=== PATIENT | female | born 1985 | race African-American/Black ===

== ENCOUNTER 2021-10-31 09:29 | Outpatient (REF) | payer OTHER, MEDICAID, SELFPAY ==
[2021-11-01 09:01] LABS: Rubella IgG Antibody <0.90 Index
== END 2021-10-31 09:30 | disposition home or self-care (01) ==
LOC: HO.HMGCLDS 09:29
PROVIDERS: Visit Provider Physician Assistant
DX: Z01.84 Encounter for antibody response examination (principal); Z92.29 Personal history of other drug therapy
CPT/HCPCS: 36415; 86735; 86762; 86765; 86787

== ENCOUNTER 2022-04-24 10:04 | Outpatient (REF) | payer MEDICAID, OTHER, SELFPAY ==
[2022-04-24 11:28] LABS: MANUAL DIFF FLAG NO
[2022-04-24 11:36] LABS: Basophils Percent Auto 0.8 % (0-2); Eosinophils Absolute Auto 0.1 X10*3/uL (0.0-0.4); Eosinophils Percent Auto 1.6 % (0-4); Hematocrit 37.7 % (37.0-47.0); Hemoglobin 11.8 g/dl (12.0-16.0); Imm Gran Abs Auto 0.01 X10*3/uL (0.00-0.03); Imm Gran Pct Auto 0.3 % (0.0-0.4); Lymphocytes Absolute Auto 1.7 X10*3/uL (1.2-4.9); Lymphocytes Percent Auto 47.3 % (20-40); Mean Corpuscular HGB Conc 31.3 g/dl (31.0-35.0); Mean Corpuscular Hemoglobin 29.4 pg (27.0-33.0); Mean Corpuscular Volume 93.8 fL (80.0-98.0); Mean Platelet Volume 10.5 fL (9.4-12.3); Monocytes Absolute Auto 0.3 X10*3/uL (0.1-1.2); Monocytes Percent Auto 8.2 % (2-11); Neutrophils Absolute Auto 1.5 x10*3/uL (2.0-8.3); Neutrophils Percent Auto 41.8 % (45-73); Platelet Count 188 X10*3/uL (160-400); Red Blood Count 4.02 X10*6/uL (4.20-5.50); Red Cell Distribution Width 12.2 % (11.0-16.0); White Blood Count 3.7 X10*3/uL (4.8-10.8)
[2022-04-24 12:29] LABS: Vitamin D 25-OH Total 27.8 ng/mL (>30)
== END 2022-04-24 10:05 | disposition home or self-care (01) ==
LOC: HO.HMGCLDS 10:04
PROVIDERS: PCP Internal Medicine; Visit Provider Internal Medicine
DX: Z01.84 Encounter for antibody response examination (principal); Z86.2 Personal history of diseases of the blood and blood-forming organs and certain disorders involving the immune mechanism
CPT/HCPCS: 36415; 82306; 85025; 86762

== ENCOUNTER 2022-07-31 08:17 | Outpatient (REF) | payer OTHER, SELFPAY ==
[2022-07-31 11:29] LABS: MANUAL DIFF FLAG NO
[2022-07-31 11:41] LABS: Basophils Percent Auto 0.8 % (0-2); Eosinophils Absolute Auto 0.1 X10*3/uL (0.0-0.4); Eosinophils Percent Auto 2.5 % (0-4); Hematocrit 38.3 % (37.0-47.0); Hemoglobin 11.6 g/dl (12.0-16.0); Imm Gran Abs Auto 0.01 X10*3/uL (0.00-0.03); Imm Gran Pct Auto 0.3 % (0.0-0.4); Lymphocytes Absolute Auto 1.7 X10*3/uL (1.2-4.9); Lymphocytes Percent Auto 43.5 % (20-40); Mean Corpuscular HGB Conc 30.3 g/dl (31.0-35.0); Mean Corpuscular Hemoglobin 28.9 pg (27.0-33.0); Mean Corpuscular Volume 95.3 fL (80.0-98.0); Mean Platelet Volume 10.6 fL (9.4-12.3); Monocytes Absolute Auto 0.3 X10*3/uL (0.1-1.2); Monocytes Percent Auto 8.5 % (2-11); Neutrophils Absolute Auto 1.8 x10*3/uL (2.0-8.3); Neutrophils Percent Auto 44.4 % (45-73); Platelet Count 212 X10*3/uL (160-400); Red Blood Count 4.02 X10*6/uL (4.20-5.50); Red Cell Distribution Width 12.2 % (11.0-16.0)
[2022-07-31 13:56] LABS: Folate 15.2 ng/mL (> or = 4.0); Vitamin B12 603 pg/mL (200-900)
[2022-07-31 14:10] LABS: Alanine Aminotransferase 21 U/L (0-31); Anion Gap 10 (12-20); Aspartate Amino Transferase 18 U/L (5-31); Blood Urea Nitrogen 9 mg/dL (9-16); Calcium 8.9 mg/dL (8.4-10.2); Carbon Dioxide 27 mmol/L (22-29); Chloride 108 mmol/L (96-108); Cholesterol 190 mg/dL; Estimated Glomerular Filt Rate > 60; Glucose Fasting 91 mg/dL (60-99); HDL Cholesterol 60 mg/dL; Iron 79 mcg/dL (30-160); LDL Cholesterol Calculated 120 mg/dl; Percent Iron Saturation 25 % (15-50); Potassium 3.8 mmol/L (3.3-5.1); Sodium 141 mmol/L (135-145); Total Iron Binding Capacity 317 mcg/dL (228-428); Triglycerides 51 mg/dL; Unsaturated Iron Binding 238 ug/dL; Vitamin D 25-OH Total 43.8 ng/mL (>30)
== END 2022-07-31 08:18 | disposition home or self-care (01) ==
LOC: HO.HMGCLDS 08:17
PROVIDERS: PCP Internal Medicine; Visit Provider Internal Medicine
DX: Z00.01 Encounter for general adult medical examination with abnormal findings (principal); Z86.2 Personal history of diseases of the blood and blood-forming organs and certain disorders involving the immune mechanism; Z86.39 Personal history of other endocrine, nutritional and metabolic disease
CPT/HCPCS: 36415; 80048; 80061; 82306; 82607; 82746; 83540; 84450; 84460; 85025

== ENCOUNTER 2022-08-01 09:28 | Outpatient (REF) | payer OTHER, SELFPAY ==
[2022-08-04 22:04] LABS: HPV mRNA E6/E7 rflx Not Detected (Not Detected)
== END 2022-08-01 09:29 | disposition home or self-care (01) ==
LOC: HO.LNP 09:28
PROVIDERS: PCP Internal Medicine; Visit Provider Advanced Practice Midwife
DX: Z01.419 Encounter for gynecological examination (general) (routine) without abnormal findings (principal); Z32.02 Encounter for pregnancy test, result negative; Z11.3 Encounter for screening for infections with a predominantly sexual mode of transmission; Z11.51 Encounter for screening for human papillomavirus (HPV)
CPT/HCPCS: 81025; 86780; 86803; 87340; 87389; 87480; 87491; 87510; 87591; 87624; 87660; 88142

== ENCOUNTER 2022-08-01 10:44 | Outpatient (REF) | payer OTHER, SELFPAY ==
[2022-08-01 12:28] LABS: HBsAGNum1 0.28 S/CO (0.00-0.99); HIV AB/AG Nonreactive (Nonreactive); Hepatitis B Surface Antigen Negative (Negative); ~HepC Num1 0.07 S/CO (0.00-0.79); ~Hepatitis C Antibody Nonreactive (Nonreactive)
[2022-08-01 12:55] LABS: Syphilis Screen Nonreactive (Nonreactive)
[2022-08-01 16:57] LABS: CT PCR NOT DETECTED (Not Detect.); NG PCR NOT DETECTED (Not Detect.)
[2022-08-02 09:33] LABS: BV Int Neg Control Negative (Negative); BV Int Pos Control Positive (Positive)
== END 2022-08-01 10:45 | disposition home or self-care (01) ==
LOC: HO.LAB 10:44
PROVIDERS: PCP Internal Medicine; Visit Provider Advanced Practice Midwife
DX: Z13.89 Encounter for screening for other disorder (principal)
CPT/HCPCS: 86780; 86803; 87340; 87389; 87480; 87491; 87510; 87591; 87660

== ENCOUNTER 2022-10-26 10:39 | Outpatient (REF) | payer OTHER, SELFPAY ==
[2022-10-27 03:24] LABS: CT PCR NOT DETECTED (Not Detect.); NG PCR NOT DETECTED (Not Detect.)
[2022-10-27 11:35] LABS: BV Int Neg Control Negative (Negative); BV Int Pos Control Positive (Positive)
[2022-11-01 07:28] LABS: HPV 16 RNA NOT DETECTED (NOT DETECTED); HPV mRNA E6/E7 rflx Detected (Not Detected)
== END 2022-10-26 10:40 | disposition home or self-care (01) ==
LOC: HO.LNP 10:39
PROVIDERS: PCP Internal Medicine; Visit Provider Advanced Practice Midwife
DX: Z12.4 Encounter for screening for malignant neoplasm of cervix (principal); Z11.3 Encounter for screening for infections with a predominantly sexual mode of transmission; Z11.51 Encounter for screening for human papillomavirus (HPV)
CPT/HCPCS: 0353U; 87480; 87510; 87624; 87625; 87660; 88142; 99212

== ENCOUNTER 2022-12-22 13:23 | Outpatient (REF) | payer OTHER, SELFPAY ==
[2022-12-22 16:50] LABS: Influenza A PCR NEGATIVE (Negative); Influenza B PCR NEGATIVE (Negative); Resp Syncy Virus RNA Qual PCR NEGATIVE (Negative); SARS COV2 PCR INHOUSE NEGATIVE (Negative)
== END 2022-12-22 13:24 | disposition home or self-care (01) ==
LOC: HO.LAB 13:23
PROVIDERS: Visit Provider Nurse Practitioner Acute Care
DX: Z20.822 Contact with and (suspected) exposure to COVID-19 (principal); J02.9 Acute pharyngitis, unspecified
CPT/HCPCS: 0241U

== ENCOUNTER 2023-02-08 11:05 | Outpatient (REF) | payer OTHER, SELFPAY ==
[2023-02-08 14:05] LABS: MANUAL DIFF FLAG NO
[2023-02-08 14:09] LABS: Basophils Percent Auto 0.8 % (0-2); Eosinophils Absolute Auto 0.1 X10*3/uL (0.0-0.4); Eosinophils Percent Auto 2.5 % (0-4); Hematocrit 38.8 % (37.0-47.0); Hemoglobin 11.8 g/dl (12.0-16.0); Lymphocytes Absolute Auto 1.7 X10*3/uL (1.2-4.9); Lymphocytes Percent Auto 45.8 % (20-40); Mean Corpuscular HGB Conc 30.4 g/dl (31.0-35.0); Mean Corpuscular Hemoglobin 28.8 pg (27.0-33.0); Mean Corpuscular Volume 94.6 fL (80.0-98.0); Mean Platelet Volume 10.4 fL (9.4-12.3); Monocytes Absolute Auto 0.2 X10*3/uL (0.1-1.2); Monocytes Percent Auto 5.8 % (2-11); Neutrophils Absolute Auto 1.7 x10*3/uL (2.0-8.3); Neutrophils Percent Auto 45.1 % (45-73); Platelet Count 217 X10*3/uL (160-400); White Blood Count 3.7 X10*3/uL (4.8-10.8)
[2023-02-08 18:50] LABS: Iron 80 mcg/dL (30-160); Percent Iron Saturation 26 % (15-50); Total Iron Binding Capacity 302 mcg/dL (228-428); Unsaturated Iron Binding 222 ug/dL
[2023-02-08 19:11] LABS: TSH reflex Free T4 0.73 uIU/mL (0.32-4.0); Vitamin D 25-OH Total 85.1 ng/mL (>30)
[2023-02-08 19:22] LABS: Vitamin B12 657 pg/mL (200-900)
== END 2023-02-08 11:06 | disposition home or self-care (01) ==
LOC: HO.HMGCLDS 11:05
PROVIDERS: PCP Internal Medicine; Visit Provider Internal Medicine
DX: R20.0 Anesthesia of skin (principal); R20.2 Paresthesia of skin
CPT/HCPCS: 36415; 82306; 82607; 82746; 83540; 84443; 85025

== ENCOUNTER 2023-04-03 10:05 | Outpatient (REF) | payer OTHER, SELFPAY ==
--- NOTE | 2023-04-03 10:08 | EMG_ITS ---
Please see scanned EMG / Nerve Conduction Report. MTDD
--- NOTE | 2023-04-03 10:09 | EMG_ITS ---
Please see scanned EMG / Nerve Conduction Report. MTDD
== END 2023-04-03 10:06 | disposition home or self-care (01) ==
LOC: HO.NEURO 10:05
PROVIDERS: PCP Internal Medicine; Visit Provider Internal Medicine
DX: R20.0 Anesthesia of skin (principal); R20.2 Paresthesia of skin
CPT/HCPCS: 95860; 95885; 95907; 95913

== ENCOUNTER 2023-07-17 13:49 | Outpatient (AMB) | payer OTHER, SELFPAY ==
[2023-07-17 14:11] VITALS: BP 116/60; BMI 27.4
--- NOTE | 2023-07-17 14:11 | MHC.OFFVIS ---
Intake Vital Signs 07/17/23 14:11 Height 5 ft 1 in Weight 145 lb BMI 27.4 BP 116/60 Intake Visit Reasons: -preg test/missed menses/sore breast Intake Note: hcg test done at home was negative, sore breast Director Outcomes Required: No Information Interpreted: non-clinical & clinical Welt Beater: Welt Beater Present (Delbert) Allergies No Known Allergies Allergy (Verified 07/17/23 14:15) Is last menstrual period known: Yes Last menstrual period: 06/16/23 Post menopausal: No HPI -preg test/missed menses/sore breast HPI Details Patient is here for test consult she has very regular periods her last period started on 06/16/2023 and when she did not get a period on the , she suspected in a test at home was negative but her breasts are tender and so she is here for a test today and the test is positive she would be 4 weeks and 3 days after her sure LMP. She had a miscarriage some years ago and then after that she had a son 8 years ago was born in [place] she had a completely normal with no issues about high blood pressure or diabetes or anything and no problems with bleeding her sister did have some high blood pressure but no preeclampsia either. She is aware of preeclampsia and so was looking up all signs and symptoms of issues to be concerned about in and she was also [employer] early with a negative test and so was reading up on ectopic pregnancies and miscarriages etc.. She has not had any pain. She has not had any spotting. She is happy with the she was feeling that if she did get by 39 then she would close the door on the possibility more. She lives in [place]. She has no medical problems. Her last Pap smear was negative with positive HPV and per the ASCCP recommendations she was told she needed a Pap smear next October which would be a 1 year. She has had breast tenderness since around the time she ovulated and is feeling very sleepy she has been having regular bowel movements. Denies constipation PFSH Medical History Numbness and tingling History of COVID-19 Hx of iron deficiency anemia Surgical History No pertinent past surgical history Family History Other No pertinent family history in first degree relatives Housing: Condominium Patient Tobacco Use Status: Never used Tobacco e-Cigarette/Vaping Use: Never Used service: No Current occupational status: student Cognitive needs: No Hearing needs: No Vision needs: No Female Reproductive History Menstrual Age of Menarche: 15 Duration of menses: <3 days Date of last menstrual period: 06/16/23 control method: none Total pregnancies: 2 Full term: 1 Number of Living Children: 1 Ab spontaneous: 1 Date of last pap smear: 10/28/22 (+HPV) History of abnormal pap smear: Yes Physical Exam Vital Signs: BMI result Body Mass Index 27.4 Results AMB Test Urine AMB Test Urine Positive Last Edit by MATT Calderón on 07/17/23 14:23 Results Reviewed Results Reviewed: Name: Delta Lawrence Age/Sex: 37/F Attending: Gretel El CNM : 1985 Submitted by: Gretel El CNM Copies to: Eugenia Miranda MD MR #: [id number] Status: DEP REF Collected: 10/26/22 Location: [facility] Received: 10/28/22 Interpretation General Category: Negative for intraepithelial lesion/malignancy. Adequacy: Endocervical component present. Interpretation: Reactive cellular changes. HPV mRNA E6/E7: DETECTED This assay detects E6/E7 viral messenger RNA (mRNA) from 14 high-risk HPV types (16, 18, 31, 33, 35, 39, 45, 51, 52, 56, 58, 59, 66, 68) HPV Type 16 RNA: Not Detected HPV Type 18/45 RNA: Not Detected HPV testing performed by [facility], [place], [place]. See reference laboratory portion of the EMR for entire report. Clinical Information LMP: 10/16/20 Previous PAP test: 08/01/22, WNL Material Received ThinPrep-Cervical Copies To Eugenia Miranda MD [address] [place], [place] [id number] [place] [place] [address] Electronically Signed By: Ana Frederick 11/07/221810 The Pap Test is a screening procedure with the inherent possibility of both false negative and false positive results. Results should be Patient: Delta Lawrence Age/Sex: 37/F MR#: [id number] Page 1 of 2 Gynecologic Cytology [id number] interpreted in the context of historic and current clinical findings. Reliability of the Pap Test is enhanced by performing the test on a regular repetitive basis. Patient: Delta Lawrence Age/Sex: 37/F MR#: [id number] Assessment & Plan Assessment & Plan (1) test positive: Code(s): Z32.01 - Encounter for test, result positive (2) AMA (advanced maternal age) multigravida 35+: Code(s): O09.529 - Supervision of elderly multigravida, unspecified trimester Plan Patient is here for test consult she has very regular periods her last period started on 06/16/2023 and when she did not get a period on the , she suspected in a test at home was negative but her breasts are tender and so she is here for a test today and the test is positive she would be 4 weeks and 3 days after her sure LMP. She had a miscarriage some years ago and then after that she had a son 8 years ago was born in [place] she had a completely normal with no issues about high blood pressure or diabetes or anything and no problems with bleeding her sister did have some high blood pressure but no preeclampsia either. She is aware of preeclampsia and so was looking up all signs and symptoms of issues to be concerned about in and she was also [employer] early with a negative test and so was reading up on ectopic pregnancies and miscarriages etc.. She has not had any pain. She has not had any spotting. She is happy with the she was feeling that if she did get by 39 then she would close the door on the possibility more. She lives in [place]. She has no medical problems. Her last Pap smear was negative with positive HPV and per the ASCCP recommendations she was told she needed a Pap smear next October which would be a 1 year. She has had breast tenderness since around the time she ovulated and is feeling very sleepy she has been having regular bowel movements. Denies constipation. ---I reviewed the patient's medical history and risk factors for . I reviewed her menstrual history and regularity, and reviewed the dating of her last menstrual period and other indicators. I reviewed where she is in this , and what to expect in this early stage of the . ---I reviewed the routines of care. I reviewed the options open to her including care here and that delivery does not occur here; it occurs currently at our referring institution.. I also reviewed the options of receiving care and delivery at [facility]. I reviewed high risk factors that would necessitate a transfer of her care to [facility]. I also reviewed the plain option of receiving care at [facility] if she wanted to meet the team that she would be interacting with head of time versus having care here and delivering at [facility] in addition because she is over 35 I did tell her that she would probably have some testing towards the end of her that would be done at [facility]. ---I reviewed basic good health and ways to achieve a healthy and goals. I reviewed warning signs that would necessitate calling us: for instance, severe pain, bleeding, severe nausea and vomiting, such that she is unable to keep anything down and feeling weak. ---I discussed next steps, scheduling of the OB physical visit with a care provider, and timing and scheduling of initial ultrasounds and genetic screening and their purpose. -she was very clear that she would like to receive all of her care in [address] place and us she is going to call [facility] and schedule care from the start at 1 of the practices there I gave her a list of all of the practices and their phone numbers and recommend that she call next Saturday as today it is Saturday afternoon before and offices will be close on and Saturday. I am sending a prescription for vitamins for her although she is already taking folic acid and iron because of her history of anemia. I reviewed basic healthy goals with diet and active exercise and activity Because. she had [employer] possible problems in early I reviewed with her what she should do if she had any symptoms of pain or bleeding and she should go to the emergency room if she did have any pain to have a an ectopic ruled out. She is aware of the signs and symptoms of miscarriage in that she had a missed AB before having her child . I offered her an ultrasound for dating but recommended that she not consider doing it until 6 weeks so 2 weeks from now -but she declined this after consideration as it is not necessary. but if she had had any symptoms warranting willing out of an ectopic I would have ordered quantitative preg hormone labs, serially, and an ultrasound but she is not interested in those as she does not have any symptoms and she does not want to expose herself to on necessary testing of any sort. I did tell her that she would want to be establishing care soon so she could get genetic testing done at the appropriate time and nuchal translucency ultrasound done by 12 weeks at her future practice at [facility]. In addition I reminded her that she would need a Pap smear by October. She has an annual exam scheduled for this July here but she is probably going to cancel that and get her Pap with her initial . Care. I also had her take a picture of the directions to [facility] should she need it for future reference. She brings her son to [facility] for pediatric care so she is familiar with [facility]. Orders: Orders AMB HCG Urine Test Today Z32.01 - Encounter for test, result positive Medications: New PNV,calcium 65-bmgp-qwuzv acid 27 mg iron- 1 mg ( Vitamins Plus Low Iron) 1 tab PO DAILY 90 tabs 0RF Coding Level of Care Code Est Pt Level 3 (58039) Diagnoses test positive Z32.01 AMA (advanced maternal age) multigravida 35+ O09.529
== END 2023-07-17 14:55 | disposition home or self-care (01) ==
LOC: HO.HWS 13:49
PROVIDERS: PCP Internal Medicine; Visit Provider Advanced Practice Midwife
DX: Z32.01 Encounter for pregnancy test, result positive (principal); O09.529 Supervision of elderly multigravida, unspecified trimester
CPT/HCPCS: 99213

== ENCOUNTER → 2023-07-17 13:49 | Outpatient (BNVA) | payer OTHER, SELFPAY | PROVIDERS: PCP Internal Medicine; Visit Provider Advanced Practice Midwife | DX: O09.521 Supervision of elderly multigravida, first trimester (principal); O98.511 Other viral diseases complicating pregnancy, first trimester; O99.011 Anemia complicating pregnancy, first trimester; D50.9 Iron deficiency anemia, unspecified; Z3A.01 Less than 8 weeks gestation of pregnancy | CPT/HCPCS: 81025; 99212 ==

== ENCOUNTER 2024-04-30 10:23 | Outpatient (AMB) | payer OTHER, SELFPAY ==
--- NOTE | 2024-04-30 10:25 | A.OFFPC_ITS ---
Vital Signs 04/30/24 10:27 Height 5 ft 1 in Weight 138 lb 8 oz BMI 26.2 BP 140/100 H Blood Pressure Location Lt brachial Position Sitting Pulse 64 Pulse Source Pulse Oximeter Pulse Oximetry (%) 98 Oxygen Delivery Method Room Air Intake Visit Reasons: elevated b/p [facility] Intake Note: Patient here to discuss elevated BP since having her child. Allergies No Known Allergies Allergy (Verified 04/30/24 10:38) Medication List - Last Reconciled 04/30/24 by Eugenia Miranda MD cholecalciferol (vitamin D3) 125 mcg PO DAILY ferrous sulfate (Feosol) 325 mg PO DAILY folic acid 0.4 mg PO DAILY nifedipine ER 30 mg PO DAILY PNV,calcium 43-qoyy-lsexb acid 27 mg iron- 1 mg ( Vitamins Plus Low Iron) 1 tab PO DAILY Tobacco use date assessed: 04/30/24 Dental Screening Dental Screen Date: 04/30/24 Did you have a dental visit in the last 12 months?: No Did you have a dental problem in the last 6 months where you did not have access to dental care?: No Was dental information given to patient?: Patient has dentist HPI elevated b/p [facility] HPI Details 38-year-old lady approximately 2 months post part with her 2nd child, here today for follow-up. She was seen at the ER at [facility] with markedly elevated blood pressure, at that time she was hypertensive with a blood pressure 150/116 and was complaining of feeling lightheaded. At the ER she was found to be hypovolemic consistent with dehydration . HELLP labs were all within normal limits. She has been exclusively and admits to not eating or drinking regularly as she should be. She is the sole caregiver for 2-month-old and 7-year-old son who is autistic, used to work as a MEDICAL SALES REPRESENTATIVE but has not been able to work for several months now and is living on her savings . She has friends but no family around to help, and has been under lot of stress lately. She was started on nifedipine 30 mg once a day, but blood pressure still remains elevated at 1 40/100 on today's visit. She denies having any chest pain, no shortness of breath, but does occasionally have episodes of head fullness, and occasional lightheadedness. [facility] Medical History Social isolation in parenthood Essential hypertension Generalized anxiety disorder Numbness and tingling History of COVID-19 Hx of iron deficiency anemia Surgical History No pertinent past surgical history Family History Other No pertinent family history in first degree relatives Social [facility] Tobacco Use Status: Never used Tobacco e-Cigarette/Vaping Use: Never Used service: No Current occupational status: student Cognitive needs: No Hearing needs: No Vision needs: No Female Reproductive History Menstrual Age of Menarche: 15 control method: none Questionnaire PHQ-9 Over the last 2 weeks, how often have you been bothered by any of the following problems? 1. Little interest or pleasure in doing things: several days 2. Feeling down, depressed, or hopeless: more than half the days 3. Trouble falling or staying asleep, or sleeping too much: not at all 4. Feeling tired or having little energy: several days 5. Poor appetite or overeating: several days 6. Feeling bad about yourself - or that you are a failure or have let yourself or your family down: not at all 7. Trouble concentrating on things, such as reading the newspaper or watching television: not at all 8. Moving or speaking so slowly that other people could have noticed. Or the opposite - being so fidgety or restless that you have been moving around a lot more than usual: not at all 9. Thoughts that you would be better off or of hurting yourself in some way: not at all Total score: 5 Depression Screening Interpretation: Positive (Referred to Kaylyn Grijalva, for assistance with getting in patient for therapy and assist with getting social work therapist) Depression Screening Done: Yes 32733 - PHQ-9 Billing: Yes Source: Developed by Drs. Nathan Sanchez, Marlin Garcia, Horacio Gallegos and colleagues, with an educational amaya from [employer]. Thrive Questionnaire Date Thrive assessed: 04/30/24 I am a: Patient What is your living situation today?: I have a place to live, but I am worried about losing it in the future Within the past 12 months, did the food you bought not last and you didn't have the money to get more?: Sometimes True Within the past 12 months, did you worry whether your food would run out before you got money to buy more?: Sometimes True Do you have trouble paying for medicines?: No Do you have trouble getting transportation to medical appointments?: No Do you have trouble paying your heating and electricity bill?: Yes Do you have trouble taking care of your child, family member or friend?: Yes Do you have trouble with day-to-day activities such as bathing, preparing meals, shopping, managing finances, etc.?: No Are you currently unemployed and looking for a job?: Yes Are you interested in more education?: Yes Please select the resources that you would like help with: Housing/Half-Way, Food, Paying for medicine, Transportation, Utilities, Childcare, Daily support, Job search/training and Education THRIVE Score: 4 AUDIT C Alcohol Use Questionnaire (AUDIT-C) 1. How often do you have a drink containing alcohol?: Never 3. How often do you have six or more drinks on one occasion?: Never Total Score: 0 Score Reviewed/Action Taken: No ADITYA-7 AMB Questionnaire ADITYA-7 Date ADITYA - 7 assessed: 04/30/24 Feeling nervous, anxious, or on edge: 1 = Several days Not being able to stop or control worryin = Several days Worrying too much about different things: 1 = Several days Trouble relaxin = Several days Being so restless that it is hard to sit still: 0 = Not at all Becoming easily annoyed or irritable: 0 = Not at all Feeling afraid as if something awful might happen: 1 = Several days Total ADITYA-7 score (0-4 normal; 5-9 mild; 10-14 moderate; 15-21 severe): 5 Source: Developed by Drs. Nathan Sanchez, Marlin Garcia, Horacio Gallegos and colleagues, with an educational amaya from [employer]. ADITYA-7 Assessment Billing ADITYA-7 Assessment Tool: ADITYA-7 Assessment 75752 Review of Systems Const All systems reviewed & are unremarkable except as noted in HPI and below Physical exam (Primary Care) Vital Signs: Last Vital Signs Pulse 64 04/30/24 10:27 BP 140/100 H 04/30/24 10:27 Pulse Ox 98 04/30/24 10:27 Oxygen Delivery Method Room Air 04/30/24 10:27 BMI result Body Mass Index 26.2 Tobacco/Smoking Status: Tobacco use Status Tobacco use date assessed 04/30/24 04/30/24 10:31 Patient Tobacco Use Status Never used Tobacco 04/30/24 10:27 e-Cigarette/Vaping Use Never Used 04/30/24 10:27 Depression Screening Interpretation: Positive (Referred to Kaylyn Grijalva, for assistance with getting in patient for therapy and assist with getting social work therapist) Thrive Assessment: Date of Thrive Assessment Date Thrive assessed 06/07/22 04/30/24 10:27 Const Other: Alert oriented x3, no acute distress noted ambulatory normal gait General: cooperative, healthy appearing, comfortable and no acute distress Nutritional Appearance: average body habitus Orientation/consciousness: patient oriented x3 HENMT Head: Yes normocephalic Ears: hearing grossly normal bilaterally and external ears normal General nose exam: Normal external nose present Face and sinus: Yes face symmetric Mouth: Normal oral and palatal mucosa present and moist mucous membranes Eyes General: appearance normal, both eyes and all related structures Neck Neck: Yes full ROM, Yes no lymphadenopathy and Yes supple Chest Other: Currently Resp Effort & Inspection: normal respiratory effort and able to speak in complete sentences Auscultation: clear to auscultation bilaterally Cardio Rate: regular rate Rhythm: regular rhythm Heart sounds: S1 normal heart sound present and S2 normal heart sound present GI Palpation (GI): Soft to palpation, nontender and no guarding Auscultation: normal bowel sounds Skin General skin exam: no rashes or lesions noted Neuro General: patient oriented x3, gait normal, tone normal, moves all extremities, Normal light touch and pain sensation, no focal motor deficits and CN's II-XI intact bilaterally Cognition (Neuro): normal cognition Gait exam (Neuro): Normal gait present Extrem General: Yes full ROM, Yes no joint enlargement, Yes no pedal edema, Yes no calf tenderness and Yes normal gait Psych Appearance: grossly normal and well kempt Mental Status: mental status grossly normal Speech and movement: Normal speech and movement present Affect: normal affect Attitude: cooperative Thought process: Normal thought process present Assessment and Plan Assessment & Plan (1) Generalized anxiety disorder: Code(s): F41.1 - Generalized anxiety disorder Plan: will start on sertraline 50 mg per tablet to take half a tablet initially once a day for the 1st week and may increase dose to a whole tablet or (2) Essential hypertension: Code(s): I10 - Essential (primary) hypertension Plan: Increase nifedipine ER to 60 mg once a day, return to the clinic in a week to check blood pressure with nurse navigator reinforced importance 50 mg daily on the 2nd week and thereafter.. Reinforced importance of following a low salt diet, and stress management (3) Social isolation in parenthood: Code(s): Z60.4 - Social exclusion and rejection Plan: Referred to Kaylyn for assistance with getting therapy and referral for assistance with current social situation Orders: Orders Comprehensive [place]. Panel Fast 04/30/24 F41.1 - Generalized anxiety disorder, I10 - Essential (primary) hypertension TSH reflex Free T4 04/30/24 F41.1 - Generalized anxiety disorder, I10 - Essential (primary) hypertension Vitamin D 25-OH Total 04/30/24 F41.1 - Generalized anxiety disorder, I10 - Essential (primary) hypertension Medications: New sertraline Take half a tablet or 25 mg initially once a day for the 1st week and then may increase dose to 50 mg per tablet daily on the 2nd week . 50 mg PO DAILY 30 tabs 0RF F41.1 - Generalized anxiety disorder Coding Level of Care Code Est Pt Level 4 (01777) Complex EM visit Add On G2211 Diagnoses Generalized anxiety disorder F41.1 Essential hypertension I10 Social isolation in parenthood Z60.4 Additional Codes ADITYA-7 Assessment Billing - ADITYA-7 Assessment Tool: ADITYA-7 Assessment 27609 ([id number])
[2024-04-30 10:27] VITALS: BP 140/100; PULSE 64; O2SAT 98; BMI 26.2
== END 2024-04-30 11:34 | disposition home or self-care (01) ==
PROVIDERS: PCP Internal Medicine; Visit Provider Internal Medicine
DX: I10 Essential (primary) hypertension (principal); F41.1 Generalized anxiety disorder; Z60.4 Social exclusion and rejection
CPT/HCPCS: 96127; 99214; G2211

== ENCOUNTER 2024-05-28 09:48 | Outpatient (AMB) | payer OTHER, SELFPAY ==
--- NOTE | 2024-05-28 10:34 | A.OFFPC_ITS ---
Vital Signs 05/28/24 10:36 Height 5 ft 1 in Weight 138 lb BMI 26.1 BP 122/72 Blood Pressure Location Lt brachial Position Sitting Pulse 66 Pulse Source Pulse Oximeter Pulse Oximetry (%) 97 Oxygen Delivery Method Room Air Intake Visit Reasons: [address] week [address] up per [address] Miranda Intake Note: Pt is here today for her 4weeks f/u anxiety Allergies No Known Allergies Allergy (Verified 05/28/24 11:12) Medication List - Last Reconciled 05/28/24 by Eugenia Miranda MD cholecalciferol (vitamin D3) 125 mcg PO DAILY ferrous sulfate (Feosol) 325 mg PO DAILY folic acid 0.4 mg PO DAILY nifedipine ER 60 mg (2 x 30 mg) PO DAILY PNV,calcium 42-[id number]-ebmrp acid 27 mg iron- 1 mg ( Vitamins Plus Low Iron) 1 tab PO DAILY sertraline 50 mg PO DAILY Tobacco use date assessed: 05/28/24 Dental Screening Dental Screen Date: 05/28/24 HPI 4 week follow up per [address] Miranda HPI Details 38-year-old lady here today for follow-u p on her anxiety disorder. She was started on sertraline currently taking 50 mg daily last 3 weeks. Patient states that she has been feeling better on this dose, sees a therapist online once a week, and has started work as a teacher. Patient states that work is a lifesaver as she feels that she is valued there, as opposed to her family members who has ostracized her for having a baby out of wedlock. Blood pressure has been stable controlled on nifedipine at 60 mg daily [facility] Medical History (Updated 05/28/24 @ 12:07 by Eugenia Miranda MD) Social isolation in parenthood Essential hypertension Generalized anxiety disorder Numbness and tingling History of COVID-19 Hx of iron deficiency anemia Surgical History No pertinent past surgical history Family History Other No pertinent family history in first degree relatives Social History Housing: Condominium Patient Tobacco Use Status: Never used Tobacco e-Cigarette/Vaping Use: Never Used service: No Current occupational status: student Cognitive needs: No Hearing needs: No Vision needs: No Female Reproductive History Menstrual Age of Menarche: 15 Questionnaire PHQ-9 Over the last 2 weeks, how often have you been bothered by any of the following problems? 1. Little interest or pleasure in doing things: not at all 2. Feeling down, depressed, or hopeless: not at all 3. Trouble falling or staying asleep, or sleeping too much: several days 4. Feeling tired or having little energy: several days 5. Poor appetite or overeating: more than half the days 6. Feeling bad about yourself - or that you are a failure or have let yourself or your family down: several days 7. Trouble concentrating on things, such as reading the newspaper or watching television: not at all 8. Moving or speaking so slowly that other people could have noticed. Or the opposite - being so fidgety or restless that you have been moving around a lot more than usual: not at all 9. Thoughts that you would be better off or of hurting yourself in some way: several days Total score: 6 Depression Screening Interpretation: Negative Depression Screening Done: Yes 73854 - PHQ-9 Billing: Yes Source: Developed by Drs. Nathan Snachez, Marlin Garcia, Horacio Gallegos and colleagues, with an educational amaya from [employer]. Thrive Questionnaire Date Thrive assessed: 05/28/24 I am a: Patient What is your living situation today?: I have a steady place to live Within the past 12 months, did the food you bought not last and you didn't have the money to get more?: Never true Within the past 12 months, did you worry whether your food would run out before you got money to buy more?: Sometimes True Do you have trouble paying for medicines?: No Do you have trouble getting transportation to medical appointments?: No Do you have trouble paying your heating and electricity bill?: No Do you have trouble taking care of your child, family member or friend?: Yes Do you have trouble with day-to-day activities such as bathing, preparing meals, shopping, managing finances, etc.?: No Are you interested in more education?: Yes Please select the resources that you would like help with: Childcare Currently or been in a relationship where the following occur: I choose not to answer THRIVE Score: 1 AUDIT C Alcohol Use Questionnaire (AUDIT-C) 1. How often do you have a drink containing alcohol?: Never Total Score: 0 ADITYA-7 AMB Questionnaire ADITYA-7 Date ADITYA - 7 assessed: 05/28/24 Feeling nervous, anxious, or on edge: 1 = Several days Not being able to stop or control worryin = Not at all Worrying too much about different things: 1 = Several days Trouble relaxin = Several days Being so restless that it is hard to sit still: 0 = Not at all Becoming easily annoyed or irritable: 0 = Not at all Feeling afraid as if something awful might happen: 1 = Several days Total ADITYA-7 score (0-4 normal; 5-9 mild; 10-14 moderate; 15-21 severe): 4 Source: Developed by Drs. Nathan Sanchez, Marlin Garcia, Horacio Gallegos and colleagues, with an educational amaya from [employer]. ADITYA-7 Assessment Billing ADITYA-7 Assessment Tool: ADITYA-7 Assessment 40184 Review of Systems Const All systems reviewed & are unremarkable except as noted in HPI and below Physical exam (Primary Care) Vital Signs: Last Vital Signs Pulse 66 05/28/24 10:36 BP 122/72 05/28/24 10:36 Pulse Ox 97 05/28/24 10:36 Oxygen Delivery Method Room Air 05/28/24 10:36 BMI result Body Mass Index 26.1 Tobacco/Smoking Status: Tobacco use Status Tobacco use date assessed 05/28/24 05/28/24 10:37 Patient Tobacco Use Status Never used Tobacco 05/28/24 10:37 e-Cigarette/Vaping Use Never Used 05/28/24 10:37 PHQ-9: PHQ-9 Score PHQ-9: Total score 6 05/28/24 11:22 Depression Screening Interpretation: Negative Thrive Assessment: Date of Thrive Assessment Date Thrive assessed 05/28/24 05/28/24 10:37 Currently or been in a relationship where the following occur: I choose not to answer Const Other: Alert oriented x3, no acute distress noted ambulatory normal gait Nutritional Appearance: average body habitus Orientation/consciousness: patient oriented x3 Neck Neck: Yes full ROM, Yes no lymphadenopathy and Yes supple Resp Effort & Inspection: normal respiratory effort and able to speak in complete sentences Auscultation: clear to auscultation bilaterally Cardio Rate: regular rate Rhythm: regular rhythm Heart sounds: S1 normal heart sound present and S2 normal heart sound present GI Palpation (GI): Soft to palpation, nontender and no guarding Auscultation: normal bowel sounds Skin General skin exam: no rashes or lesions noted Neuro General: patient oriented x3, gait normal, tone normal, moves all extremities, Normal light touch and pain sensation, no focal motor deficits and CN's II-XI intact bilaterally Cognition (Neuro): normal cognition Gait exam (Neuro): Normal gait present Extrem General: Yes full ROM, Yes no joint enlargement, Yes no pedal edema, Yes no calf tenderness and Yes normal gait Psych Appearance: grossly normal and well kempt Mental Status: mental status grossly normal Speech and movement: Normal speech and movement present Affect: normal affect Attitude: cooperative Thought process: Normal thought process present Coding Level of Care Code Est Pt Level 4 (04497) Complex EM visit Add On G2211 Diagnoses Essential hypertension I10 Generalized anxiety disorder F41.1 Additional Codes ADITYA-7 Assessment Billing - ADITYA-7 Assessment Tool: ADITYA-7 Assessment 62262 ([id number]) Assessment & Plan Assessment & Plan (1) Essential hypertension: Code(s): I10 - Essential (primary) hypertension Category: Medical Plan: Blood pressure at goal of less than 130/80. Continue with nifedipine 60 mg daily. Reinforced importance of following a low sodium diet, getting regular exercise, and lowering stress levels. (2) Generalized anxiety disorder: Code(s): F41.1 - Generalized anxiety disorder Category: Medical Plan: Anxiety better controlled on sertraline 50 mg daily, will continue, continue with doing counseling via telehealth once a week. Will see her back for follow- up in 06/2024 Medications: Changed From nifedipine ER 60 mg (2 x 30 mg) PO DAILY 30 tabs 1RF To nifedipine ER 60 mg PO DAILY 30 tabs 4RF Refilled sertraline Take half a tablet or 25 mg initially once a day for the 1st week and then may increase dose to 50 mg per tablet daily on the 2nd week . 50 mg PO DAILY 30 tabs 5RF F41.1 - Generalized anxiety disorder
[2024-05-28 10:36] VITALS: BP 122/72; PULSE 66; O2SAT 97; BMI 26.1
== END 2024-05-28 11:41 | disposition home or self-care (01) ==
PROVIDERS: PCP Internal Medicine; Visit Provider Internal Medicine
DX: I10 Essential (primary) hypertension (principal); F41.1 Generalized anxiety disorder

== ENCOUNTER → 2024-05-28 09:48 | Outpatient (BNVA) | payer OTHER, SELFPAY | PROVIDERS: PCP Internal Medicine; Visit Provider Internal Medicine | DX: I10 Essential (primary) hypertension (principal); F41.1 Generalized anxiety disorder; Z79.899 Other long term (current) drug therapy | CPT/HCPCS: 96127; 99212 ==

== ENCOUNTER 2024-07-04 10:14 | Outpatient (REF) | payer OTHER, SELFPAY ==
[2024-07-04 11:06] LABS: MANUAL DIFF FLAG NO
[2024-07-04 11:30] LABS: Basophils Percent Auto 0.2 % (0-2); Eosinophils Absolute Auto 0.1 X10*3/uL (0.0-0.4); Eosinophils Percent Auto 1.4 % (0-4); Hematocrit 38.6 % (37.0-47.0); Imm Gran Abs Auto 0.01 X10*3/uL (0.00-0.03); Imm Gran Pct Auto 0.2 % (0.0-0.4); Lymphocytes Absolute Auto 1.9 X10*3/uL (1.2-4.9); Lymphocytes Percent Auto 43.6 % (20-40); Mean Corpuscular HGB Conc 31.1 g/dl (31.0-35.0); Mean Corpuscular Hemoglobin 29.3 pg (27.0-33.0); Mean Corpuscular Volume 94.4 fL (80.0-98.0); Monocytes Absolute Auto 0.3 X10*3/uL (0.1-1.2); Monocytes Percent Auto 7.5 % (2-11); Neutrophils Absolute Auto 2.1 x10*3/uL (2.0-8.3); Neutrophils Percent Auto 47.1 % (45-73); Platelet Count 220 X10*3/uL (160-400); Red Blood Count 4.09 X10*6/uL (4.20-5.50); Red Cell Distribution Width 12.1 % (11.0-16.0); White Blood Count 4.4 X10*3/uL (4.8-10.8)
[2024-07-04 12:03] LABS: Alanine Aminotransferase 36 U/L (0-31); Anion Gap 12 (12-20); Aspartate Amino Transferase 33 U/L (5-31); Blood Urea Nitrogen 8 mg/dL (9-16); Calcium 9.1 mg/dL (8.4-10.2); Carbon Dioxide 26 mmol/L (22-29); Chloride 106 mmol/L (96-108); Cholesterol 222 mg/dL (<200); Estimated Glomerular Filt Rate > 60; Glucose Fasting 89 mg/dL (60-99); HDL Cholesterol 67 mg/dL (>40); Iron 113 mcg/dL (30-160); LDL Cholesterol Calculated 143 mg/dL (<100); Percent Iron Saturation 39 % (15-50); Potassium 3.6 mmol/L (3.3-5.1); Sodium 140 mmol/L (135-145); Total Iron Binding Capacity 288 mcg/dL (228-428); Triglycerides 62 mg/dL (<150); Unsaturated Iron Binding 175 ug/dL
[2024-07-04 12:08] LABS: Ferritin 155 ng/mL (10-122); Vitamin D 25-OH Total 41.9 ng/mL (>30)
== END 2024-07-04 10:15 | disposition home or self-care (01) ==
LOC: HO.HMGCLDS 10:14
PROVIDERS: PCP Internal Medicine; Visit Provider Internal Medicine
DX: I10 Essential (primary) hypertension (principal); Z86.2 Personal history of diseases of the blood and blood-forming organs and certain disorders involving the immune mechanism; F41.1 Generalized anxiety disorder
CPT/HCPCS: 36415; 80048; 80061; 82306; 82728; 83540; 84450; 84460; 85025

== ENCOUNTER 2024-07-08 09:13 | Outpatient (AMB) | payer OTHER, SELFPAY ==
[2024-07-08 09:34] VITALS: BP 120/70; PULSE 75; O2SAT 99; BMI 26.8
--- NOTE | 2024-07-08 09:34 | MHC.PC.OV ---
Vital Signs 07/08/24 09:34 Height 5 ft 1 in Weight 142 lb BMI 26.8 BP 120/70 Blood Pressure Location Rt brachial Position Sitting Pulse 75 Pulse Source Pulse Oximeter Pulse Oximetry (%) 99 Oxygen Delivery Method Room Air Intake Visit Reasons: PE Intake Note: Pt is here today for her PE: last papsmear 10/28/22 Is last menstrual period known: Yes Last menstrual period: 06/12/24 Allergies No Known Allergies Allergy (Verified 07/08/24 10:02) Medication List - Last Reconciled 07/08/24 by Eugenia Miranda MD cholecalciferol (vitamin D3) 125 mcg PO DAILY ferrous sulfate (Feosol) 325 mg PO DAILY folic acid 0.4 mg PO DAILY nifedipine ER 60 mg PO DAILY PNV,calcium 19-vzay-doslb acid 27 mg iron- 1 mg ( Vitamins Plus Low Iron) 1 tab PO DAILY sertraline 50 mg PO DAILY Tobacco use date assessed: 07/08/24 Dental Screening Dental Screen Date: 07/08/24 Did you have a dental visit in the last 12 months?: No Did you have a dental problem in the last 6 months where you did not have access to dental care?: No Was dental information given to patient?: Patient has dentist HPI PE HPI Details 38-year-old lady, here today for physical exam. She has hypertension, currently stable and controlled on nifedipine ER 60 mg daily, still her 2nd child . Has history of iron-deficiency anemia, currently on ferrous sulfate 325 mg taken once a day. Recent labs showed CBC, iron levels now within normal limits and elevated ferritin levels Fasting lipids done recently also showed elevated LDL cholesterol as compared to last check . Was placed on sertraline 50 mg once a day on last visit for generalized anxiety disorder, now sees a therapist regularly patient states however that she has cut it down to just 25 mg which he takes every now and then as the 50 mg dose makes her very drowsy. She states that she does not feel that she really needs to be taking the medicine . [facility] Medical History Dyslipidemia Social isolation in parenthood Essential hypertension Generalized anxiety disorder Numbness and tingling History of COVID-19 Hx of iron deficiency anemia Surgical History No pertinent past surgical history Family History Other No pertinent family history in first degree relatives Social History Housing: Condominium Patient Tobacco Use Status: Never used Tobacco e-Cigarette/Vaping Use: Never Used service: No Current occupational status: student Cognitive needs: No Hearing needs: No Vision needs: No Female Reproductive History Menstrual Age of Menarche: 15 Date of last menstrual period: 06/12/24 Questionnaire Thrive Questionnaire Date Thrive assessed: 07/08/24 I am a: Patient What is your living situation today?: I have a steady place to live Within the past 12 months, did the food you bought not last and you didn't have the money to get more?: Never true Within the past 12 months, did you worry whether your food would run out before you got money to buy more?: Sometimes True Do you have trouble paying for medicines?: No Do you have trouble getting transportation to medical appointments?: No Do you have trouble paying your heating and electricity bill?: No Do you have trouble taking care of your child, family member or friend?: Yes Do you have trouble with day-to-day activities such as bathing, preparing meals, shopping, managing finances, etc.?: No Are you currently unemployed and looking for a job?: No Are you interested in more education?: Yes Please select the resources that you would like help with: Childcare Currently or been in a relationship where the following occur: I choose not to answer THRIVE Score: 1 ADITYA-7 AMB Questionnaire ADITYA-7 Date ADITYA - 7 assessed: 07/08/24 Feeling nervous, anxious, or on edge: 0 = Not at all Not being able to stop or control worryin = Not at all Worrying too much about different things: 0 = Not at all Trouble relaxin = Not at all Being so restless that it is hard to sit still: 0 = Not at all Becoming easily annoyed or irritable: 0 = Not at all Feeling afraid as if something awful might happen: 0 = Not at all Total ADITYA-7 score (0-4 normal; 5-9 mild; 10-14 moderate; 15-21 severe): 0 Source: Developed by Drs. Nathan Sanchez, Marlin Garcia, Horacio Gallegos and colleagues, with an educational amaya from [employer]. ADITYA-7 Assessment Billing ADITYA-7 Assessment Tool: ADITYA-7 Assessment 90049 Review of Systems Const Denies body aches, Denies fatigue, Denies fever(s), Denies headache(s) and Denies weakness Eyes Denies change in vision ENT Denies dizziness, Denies headache(s), Denies nasal congestion, Denies nasal discharge and Denies sore throat Card Denies chest pain, Denies lightheadedness, Denies palpitations and Denies dyspnea Resp Denies chest congestion, Denies cough, Denies dyspnea and Denies wheezing GI Denies abdominal pain, Denies change in bowel habits and Denies heartburn Denies hematuria, Denies urinary frequency, Denies dysuria and Denies urinary urgency Musc Reports no additional complaints Skin/Breast Denies breast pain, Denies breast mass, Denies lesions and Denies rash Neuro Denies dizziness, Denies headache(s) and Denies weakness Psych Reports no additional complaints Endo Denies fatigue, Denies polydipsia, Denies polyuria and Denies palpitations Kamran/Lymph Denies easy bruising Aller/Immun Denies seasonal rhinorrhea and Denies wheezing Physical exam (Primary Care) Vital Signs: Last Vital Signs Pulse 75 07/08/24 09:34 BP 120/70 07/08/24 09:34 Pulse Ox 99 07/08/24 09:34 Oxygen Delivery Method Room Air 07/08/24 09:34 BMI result Body Mass Index 26.8 Tobacco/Smoking Status: Tobacco use Status Tobacco use date assessed 07/08/24 07/08/24 09:59 Patient Tobacco Use Status Never used Tobacco 07/08/24 09:35 e-Cigarette/Vaping Use Never Used 07/08/24 09:35 Thrive Assessment: Date of Thrive Assessment Date Thrive assessed 07/08/24 07/08/24 09:59 Currently or been in a relationship where the following occur: I choose not to answer Advance Care Planning discussion: Completed/Scanned Date of discussion: 07/08/24 Who was present: Patient Forms completed: Health Care Proxy Time spent: 16-45 minutes Actual minutes spent: 3 Const Other: Alert oriented x3, no acute distress noted ambulatory normal gait Nutritional Appearance: average body habitus Orientation/consciousness: patient oriented x3 HENMT Head: Yes normocephalic Ears: external ears normal General nose exam: Normal external nose present Face and sinus: Yes face symmetric Mouth: Normal oral and palatal mucosa present, oropharynx normal and moist mucous membranes Neck Neck: Yes full ROM, Yes no lymphadenopathy and Yes supple Chest Chest palpation & inspection: normal inspection of the chest Breast/axilla palpation: normal palpation of the breasts Resp Effort & Inspection: normal respiratory effort and able to speak in complete sentences Auscultation: clear to auscultation bilaterally Cardio Rate: regular rate Rhythm: regular rhythm Heart sounds: S1 normal heart sound present and S2 normal heart sound present GI Palpation (GI): Soft to palpation, nontender and no guarding Auscultation: normal bowel sounds General: Yes no CVA tenderness and Yes deferred (Goes to [facility] for routine Pap and pelvic exam) Back/Spine/Pelvis Back: no CVA tenderness and No back tenderness Skin General skin exam: no rashes or lesions noted Neuro General: patient oriented x3, gait normal, tone normal, moves all extremities, Normal light touch and pain sensation, no focal motor deficits and CN's II-XI intact bilaterally Cognition (Neuro): normal cognition Gait exam (Neuro): Normal gait present Extrem General: Yes full ROM, Yes no joint enlargement, Yes no pedal edema, Yes no calf tenderness and Yes normal gait Psych Appearance: grossly normal and well kempt Mental Status: mental status grossly normal Speech and movement: Normal speech and movement present Affect: normal affect Attitude: cooperative Thought process: Normal thought process present Office Procedures Flu Questionnaire Does the patient have a severe egg allergy?: No Does the patient have severe life threatening allergies?: No Does the patient have a fever or illness today?: No Has the patient ever had Guillain-[place] Syndrome?: No Has the patient ever had any past reaction to a flu shot?: No Immunizations Fluarix Triv [id number] (PF) 45 mcg (15 mcg x 3)/0.5 mL IM syringe Performing Provider: Eugenia Miranda MD Performing Location: [facility] Administered by: Swapna Candelario CMA on 07/08/24 10:26 Dose Route Admin Location Dispensed Lot Number Expiration Date NDC House Cleaner 0.5 mL IM Left Deltoid 0.5 mL [id number] 02/22/25 [id number] [employer] VIS Given Date VIS Provided VIS Publication Date 07/08/24 Single Vaccine 21 Eligibility Eligibility Date Funding Source Not VFC Eligible 07/08/24 Private Results Reviewed Results Reviewed: Name: Delta Lawrence Age/Sex: 38/F : 1985 Unit#: [id number] Attend Dr: Eugenia Miranda MD Re07/04/24 Status: DEP REF Location: [facility] Disch: SPEC : [id number] STEPH: 07/04/24 STATUS: COMP REQ : [id number] RECD: 07/04/[address]: Eugenia Miranda MD COMP: 07/04/24 ENTERED: 07/04/[address] [facility] [address]: ORDERED: CBC Auto Diff Test Result Flag Reference WBC 4.4 L 4.8-10.8 X10*3/uL RBC 4.09 L 4.20-5.50 X10*6/uL HGB 12.0 12.0-16.0 g/dl HCT 38.6 37.0-47.0 % MCV 94.4 80.0-98.0 fL MCH 29.3 27.0-33.0 pg MCHC 31.1 31.0-35.0 g/dl RDW 12.1 11.0-16.0 % PLT 220 160-400 X10*3/uL MPV 10.0 9.4-12.3 fL Neut Pct Auto 47.1 45-73 % ImGran Pct Auto 0.2 0.0-0.4 % Lymp Pct Auto 43.6 H 20-40 % [place] Pct Auto 7.5 2-11 % Eos Pct Auto 1.4 0-4 % Baso Pct Auto 0.2 0-2 % NRBC Pct Auto 0.0 0.0-0.2 /100WBC ANC Neut Abs # 2.1 2.0-8.3 x10*3/uL ImGran Abs Auto 0.01 0.00-0.03 X10*3/uL Lymph Abs Auto 1.9 1.2-4.9 X10*3/uL [place] Abs Auto 0.3 0.1-1.2 X10*3/uL Eos Abs Auto 0.1 0.0-0.4 X10*3/uL Baso Abs Auto 0.0 0.0-0.2 X10*3/uL NRBC Abs Auto 0.000 0.0-0.012 X10*3/uL Name: Delta Lawrence Age/Sex: 38/F : 1985 Unit#: [id number] Attend Dr: Eugenia Miranda MD Re07/04/24 Status: DEP [facility] Disch: SPEC : [id number] STEPH: 07/04/24-1020 STATUS: COMP REQ : [id number] RECD: 07/04/24-[address]: Eugenia Miranda MD COMP: 07/04/24-1208 ENTERED: 07/04/24-[address] [facility] [address]: ORDERED: Met Prof Fast, IRON PROF, Ferritin, AST, ALT, Lipid Panel, Vitamin D 25- Test Result Flag Reference Sodium 140 135-145 mmol/L Potassium 3.6 3.3-5.1 mmol/L CL 106 96-108 mmol/L CO2 26 22-29 mmol/L Gap 12 12-20 BUN 8 L 9-16 mg/dL Creat 0.75 0.5-1.4 mg/dL EGFR > 60 NOTE: For -Indonesian individuals, multiply the result by 1.210. Chronic Kidney Disease: Estimated GFR < 60 mL/min/1.73m2 Severe Kidney Disease: Estimated GFR < 15 mL/min/1.73m2 FBS 89 60-99 mg/dL CA 9.1 8.4-10.2 mg/dL Iron 113 30-160 mcg/dL TIBC 288 228-428 mcg/dL Saturation 39 15-50 % UIBC 175 ug/dL Ferritin 155 H 10-122 ng/mL AST (GOT) 33 H 5-31 U/L ALT (GPT) 36 H 0-31 U/L Triglyceride 62 <150 mg/dL Desirable Triglyceride: less than 150 mg/dL Borderline High Triglyceride 150-199 mg/dL High Triglyceride: 200-499 mg/dL Very High Triglyceride: greater than or equal to 5OO mg/dL Cholesterol 222 H <200 mg/dL Desirable Cholesterol: less than 200 mg/dL Borderline High Cholesterol: 200-239 mg/dL High Cholesterol: greater than 239 mg/dL LDL Calculated 143 H <100 mg/dL Desirable LDL: less than 100 mg/dL Near Optimal/Above Optimal LDL: 110-129 mg/dL Borderline High LDL: 130-159 mg/dL High LDL: 160-189 mg/dL Very High LDL: greater than or equal to 190 mg/dL HDL 67 >40 mg/dL Desirable HDL: greater than 40 mg/dL Note: This HDL assay may give artificially low results in patients with liver disease. Vit D 25-OH Tot 41.9 >30 ng/mL Health Based Reference Values* < 20 ng/mL Deficient 20-30 ng/mL Insufficient > 30 ng/mL Sufficient Coding Level of Care Code Est Pt Prev Care 18-39y(95406) Diagnoses Annual visit for general adult medical examination with abnormal findings Z00.01 Hx of iron deficiency anemia Z86.2 Generalized anxiety disorder F41.1 Essential hypertension I10 Dyslipidemia E78.5 Advanced directives, counseling/discussion Z71.89 Additional Codes Vital Signs *Quality* - Advance Care Planning discussion: Completed/Scanned ([id number]) Vital Signs *Quality* - Time spent: 16-45 minutes ([id number]) ADITYA-7 Assessment Billing - ADITYA-7 Assessment Tool: ADITYA-7 Assessment 70294 ([id number]) Assessment & Plan Assessment & Plan (1) Annual visit for general adult medical examination with abnormal findings: Code(s): Z00.01 - Encounter for general adult medical examination with abnormal findings Plan: Recent fasting labs reviewed with patient.. Recommended dental visit every 6 months and regular eye exams, at least every 2 years. Take adequate calcium in diet and vitamin-D 3 at 2000 IU per cap once a day, in addition to weight-bearing exercises to help maintain good muscle tone and weight control. Instructed to do self-breast exam, and rget yearly mammogram, starting at age 40. Currently up-to-date with her cervical cancer screening and pelvic exam, sees [facility], last Pap smear was done a year ago which came back positive for HPV, advised to schedule follow-up visit with [facility]. Up-to-date with her Tdap, has had 1 COVID vaccine, does not want to get booster, flu vaccine given today (2) Hx of iron deficiency anemia: Code(s): Z86.2 - Personal history of diseases of the blood and blood-forming organs and certain disorders involving the immune mechanism Category: Medical Plan: Latest iron levels and CBC are now within normal limits, with a hemoglobin at 12. Advised to finish her iron supplements but take it 3 times a week now as her ferritin levels is elevated. Recheck another CBC and iron level in 10/2024 (3) Generalized anxiety disorder: Code(s): F41.1 - Generalized anxiety disorder Category: Medical Plan: Patient has only been taking 25 mg of sertraline every now and then. Currently sees a therapist regularly, does not feel that she needs the medication anymore. Advised to discontinue taking sertraline (4) Essential hypertension: Code(s): I10 - Essential (primary) hypertension Category: Medical Plan: Blood pressure at goal of less than 130/80. Continue with nifedipine ER 60 mg once a day. Reinforced importance of following a low sodium diet, getting regular exercise, and lowering stress levels. Will see her back for follow-up in 10/2024 (5) Dyslipidemia: Code(s): E78.5 - Hyperlipidemia, unspecified Category: Medical Plan: Fasting lipid panel elevated on this visit with LDL cholesterol at 140 mg/dL. Stressed importance of following low-cholesterol diet and getting regular exercise. Will recheck levels again in October 2024 (6) Advanced directives, counseling/discussion: Code(s): Z71.89 - Other specified counseling Plan: Initiated the conversation about Advanced Directives. Advanced Directives help patients prepare for current and future decisions about their medical treatment and place of care. Discussed with patient that it is a process where a patients current condition and prognosis are reviewed, their wishes for information regarding their illness are elicited, and likely medical dilemmas are presented and options discussed. Healthcare proxy form completed today. The form can be amended as needed, reviewed yearly and make changes as needed Orders: Orders Lipid Panel 10/24/24 E78.5 - Hyperlipidemia, unspecified, F41.1 - Generalized anxiety disorder, I10 - Essential (primary) hypertension, Z86.2 - Personal history of diseases of the blood and blood-forming organs and certain disorders involving the immune mechanism Complete Blood Count Auto Diff 10/24/24 E78.5 - Hyperlipidemia, unspecified, F41.1 - Generalized anxiety disorder, I10 - Essential (primary) hypertension, Z86.2 - Personal history of diseases of the blood and blood-forming organs and certain disorders involving the immune mechanism Influenza [id number] Immunization Today Z23 - Encounter for immunization IRON PROFILE 10/24/24 E78.5 - Hyperlipidemia, unspecified, F41.1 - Generalized anxiety disorder, I10 - Essential (primary) hypertension, Z86.2 - Personal history of diseases of the blood and blood-forming organs and certain disorders involving the immune mechanism Alanine Aminotransferase 10/24/24 E78.5 - Hyperlipidemia, unspecified, F41.1 - Generalized anxiety disorder, I10 - Essential (primary) hypertension, Z86.2 - Personal history of diseases of the blood and blood-forming organs and certain disorders involving the immune mechanism Aspartate Amino Transferase 10/24/24 E78.5 - Hyperlipidemia, unspecified, F41.1 - Generalized anxiety disorder, I10 - Essential (primary) hypertension, Z86.2 - Personal history of diseases of the blood and blood-forming organs and certain disorders involving the immune mechanism Vitamin D 25-OH Total 10/24/24 E78.5 - Hyperlipidemia, unspecified, F41.1 - Generalized anxiety disorder, I10 - Essential (primary) hypertension, Z86.2 - Personal history of diseases of the blood and blood-forming organs and certain disorders involving the immune mechanism Basic Metabolic Panel Fasting 10/24/24 E78.5 - Hyperlipidemia, unspecified, F41.1 - Generalized anxiety disorder, I10 - Essential (primary) hypertension, Z86.2 - Personal history of diseases of the blood and blood-forming organs and certain disorders involving the immune mechanism
== END 2024-07-08 10:32 | disposition home or self-care (01) ==
PROVIDERS: PCP Internal Medicine; Visit Provider Internal Medicine
DX: Z00.01 Encounter for general adult medical examination with abnormal findings (principal); Z86.2 Personal history of diseases of the blood and blood-forming organs and certain disorders involving the immune mechanism; F41.1 Generalized anxiety disorder; I10 Essential (primary) hypertension; E78.5 Hyperlipidemia, unspecified; Z71.89 Other specified counseling; Z23 Encounter for immunization; Z00.00 Encounter for general adult medical examination without abnormal findings

== ENCOUNTER → 2024-07-08 09:13 | Outpatient (BNVA) | payer OTHER, SELFPAY | PROVIDERS: PCP Internal Medicine; Visit Provider Internal Medicine | DX: Z00.01 Encounter for general adult medical examination with abnormal findings (principal); Z23 Encounter for immunization; F41.1 Generalized anxiety disorder; E78.5 Hyperlipidemia, unspecified; I10 Essential (primary) hypertension; Z71.89 Other specified counseling; Z86.2 Personal history of diseases of the blood and blood-forming organs and certain disorders involving the immune mechanism | CPT/HCPCS: 90471; 90656; 96127; 99395; 99497 ==

== ENCOUNTER 2024-12-15 11:46 | Outpatient (REF) | payer OTHER, SELFPAY ==
[2024-12-15 13:14] LABS: MANUAL DIFF FLAG NO
[2024-12-15 13:33] LABS: Basophils Percent Auto 0.6 % (0-2); Eosinophils Absolute Auto 0.1 X10*3/uL (0.0-0.4); Eosinophils Percent Auto 2.3 % (0-4); Hematocrit 38.1 % (37.0-47.0); Hemoglobin 11.8 g/dl (12.0-16.0); Imm Gran Abs Auto 0.01 X10*3/uL (0.00-0.03); Imm Gran Pct Auto 0.3 % (0.0-0.4); Lymphocytes Absolute Auto 1.5 X10*3/uL (1.2-4.9); Lymphocytes Percent Auto 43.2 % (20-40); Mean Corpuscular Hemoglobin 28.6 pg (27.0-33.0); Mean Corpuscular Volume 92.3 fL (80.0-98.0); Mean Platelet Volume 10.6 fL (9.4-12.3); Monocytes Absolute Auto 0.2 X10*3/uL (0.1-1.2); Monocytes Percent Auto 6.6 % (2-11); Neutrophils Absolute Auto 1.6 x10*3/uL (2.0-8.3); Platelet Count 206 X10*3/uL (160-400); Red Blood Count 4.13 X10*6/uL (4.20-5.50); Red Cell Distribution Width 12.5 % (11.0-16.0); White Blood Count 3.5 X10*3/uL (4.8-10.8)
[2024-12-15 14:12] LABS: Alanine Aminotransferase 31 U/L (0-31); Anion Gap 12 (12-20); Aspartate Amino Transferase 27 U/L (5-31); Blood Urea Nitrogen 8 mg/dL (9-16); Carbon Dioxide 23 mmol/L (22-29); Chloride 108 mmol/L (96-108); Cholesterol 204 mg/dL (<200); Estimated Glomerular Filt Rate > 60; Glucose Fasting 89 mg/dL (60-99); HDL Cholesterol 69 mg/dL (>40); Iron 129 mcg/dL (30-160); LDL Cholesterol Calculated 123 mg/dL (<100); Percent Iron Saturation 38 % (15-50); Potassium 3.9 mmol/L (3.3-5.1); Sodium 139 mmol/L (135-145); Total Iron Binding Capacity 337 mcg/dL (228-428); Triglycerides 64 mg/dL (<150); Unsaturated Iron Binding 208 ug/dL
[2024-12-15 14:28] LABS: Vitamin D 25-OH Total 39.6 ng/mL (>30)
== END 2024-12-15 11:47 | disposition home or self-care (01) ==
LOC: HO.HMGCLDS 11:46
PROVIDERS: PCP Internal Medicine; Visit Provider Internal Medicine
DX: I10 Essential (primary) hypertension (principal); F41.1 Generalized anxiety disorder; Z86.2 Personal history of diseases of the blood and blood-forming organs and certain disorders involving the immune mechanism; E78.5 Hyperlipidemia, unspecified
CPT/HCPCS: 36415; 80048; 80061; 82306; 83540; 84450; 84460; 85025

== ENCOUNTER 2024-12-18 14:38 | Outpatient (REF) | payer OTHER, SELFPAY ==
[2024-12-25 12:57] LABS: HPV Genotype 16 Negative (Negative); HPV Genotype 18 Negative (Negative); HPV High Risk Negative (Negative)
== END 2024-12-18 14:39 | disposition home or self-care (01) ==
LOC: HO.LNP 14:38
PROVIDERS: PCP Internal Medicine; Visit Provider Advanced Practice Midwife
DX: Z01.419 Encounter for gynecological examination (general) (routine) without abnormal findings (principal); Z11.51 Encounter for screening for human papillomavirus (HPV)
CPT/HCPCS: 87626; 88175; 99396; 99459

== ENCOUNTER 2024-12-18 14:38 | Outpatient (AMB) | payer OTHER, SELFPAY ==
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
[2024-12-18 14:47] VITALS: BP 120/76; BMI 27.2
== END 2024-12-18 15:35 | disposition home or self-care (01) ==
LOC: HO.HWS 14:38
PROVIDERS: PCP Internal Medicine; Visit Provider Advanced Practice Midwife
DX: Z01.419 Encounter for gynecological examination (general) (routine) without abnormal findings (principal); I10 Essential (primary) hypertension; Z60.4 Social exclusion and rejection
CPT/HCPCS: 99396; 99459

== ENCOUNTER 2024-12-31 13:49 | Outpatient (AMB) | payer OTHER, SELFPAY ==
--- NOTE | 2024-12-31 14:01 | A.OFFPC_ITS ---
Vital Signs 12/31/24 14:05 Height 5 ft 1 in Weight 150 lb BMI 28.3 BP 110/70 Blood Pressure Location Rt brachial Position Sitting Respiration 16 Pulse 90 Pulse Source Pulse Oximeter Temp 98.8 F Temp Source Oral Pulse Oximetry (%) 99 Oxygen Delivery Method Room Air Intake Visit Reasons: 4 months follow up Intake Note: Pt is here today for her 4mo. f/u Allergies No Known Allergies Allergy (Verified 12/31/24 14:04) Medication List - Last Reviewed 12/31/24 by Swapna Candelario CMA cholecalciferol (vitamin D3) 125 mcg PO DAILY ferrous sulfate (Feosol) 325 mg PO DAILY folic acid 0.4 mg PO DAILY nifedipine ER 60 mg PO DAILY PNV,calcium 56-phqx-jxycu acid 27 mg iron- 1 mg ( Vitamins Plus Low Iron) 1 tab PO DAILY Tobacco use date assessed: 07/08/24 Dental Screening Dental Screen Date: 12/31/24 Did you have a dental visit in the last 12 months?: No Did you have a dental problem in the last 6 months where you did not have access to dental care?: No Was dental information given to patient?: Patient has dentist HPI 4 months follow up HPI Details 39-year-old lady with hypertension, iron -deficiency anemia, here today for her follow-up. She has stopped taking her iron supplements since last v , but CBC now showed presence of mild anemia. Current iron levels however are within normal limits. Her blood pressure is stable and controlled on nifedipine 60 mg daily, will continue Complains of severe nasal congestion and runny nose as well as the itchy eyes which has been present now for the last month ever since spring started. Has been taking Claritin [id number] which has not afforded any relief. REPLACED BY [facility] Medical History (Updated 12/31/24 @ 14:23 by Eugenia Miranda MD) Anemia, iron deficiency Environmental and seasonal allergies Dyslipidemia Social isolation in parenthood Essential hypertension Generalized anxiety disorder Numbness and tingling History of COVID-19 Surgical History No pertinent past surgical history Family History Other No pertinent family history in first degree relatives Social History Housing: Condominium Patient Tobacco Use Status: Never used Tobacco e-Cigarette/Vaping Use: Never Used service: No Current occupational status: student Cognitive needs: No Hearing needs: No Vision needs: No Female Reproductive History Menstrual Age of Menarche: 15 Questionnaire PHQ-9 Over the last 2 weeks, how often have you been bothered by any of the following problems? 1. Little interest or pleasure in doing things: not at all 2. Feeling down, depressed, or hopeless: not at all 3. Trouble falling or staying asleep, or sleeping too much: several days 4. Feeling tired or having little energy: not at all 5. Poor appetite or overeating: not at all 6. Feeling bad about yourself - or that you are a failure or have let yourself or your family down: several days 7. Trouble concentrating on things, such as reading the newspaper or watching television: not at all 8. Moving or speaking so slowly that other people could have noticed. Or the opposite - being so fidgety or restless that you have been moving around a lot more than usual: not at all 9. Thoughts that you would be better off or of hurting yourself in some way: not at all Total score: 2 Depression Screening Interpretation: Negative Depression Screening Done: Yes 03851 - PHQ-9 Billing: Yes Source: Developed by Drs. Nathan Sanchez, Marlin Garcia, Horacio Gallegos and colleagues, with an educational amaya from [employer]. Thrive Questionnaire Date Thrive assessed: 12/31/24 I am a: Patient What is your living situation today?: I have a steady place to live Within the past 12 months, did the food you bought not last and you didn't have the money to get more?: I choose not to answer this question Within the past 12 months, did you worry whether your food would run out before you got money to buy more?: Never true Do you have trouble paying for medicines?: No Do you have trouble getting transportation to medical appointments?: No Do you have trouble paying your heating and electricity bill?: I choose not to answer this question Do you have trouble taking care of your child, family member or friend?: No Do you have trouble with day-to-day activities such as bathing, preparing meals, shopping, managing finances, etc.?: No Are you currently unemployed and looking for a job?: No Are you interested in more education?: No Please select the resources that you would like help with: None Currently or been in a relationship where the following occur: I choose not to answer THRIVE Score: 0 AUDIT C Alcohol Use Questionnaire (AUDIT-C) 1. How often do you have a drink containing alcohol?: Never Total Score: 0 ADITYA-7 AMB Questionnaire ADITYA-7 Date ADITYA - 7 assessed: 12/31/24 Feeling nervous, anxious, or on edge: 1 = Several days Not being able to stop or control worryin = Several days Worrying too much about different things: 1 = Several days Trouble relaxin = Not at all Being so restless that it is hard to sit still: 0 = Not at all Becoming easily annoyed or irritable: 0 = Not at all Feeling afraid as if something awful might happen: 0 = Not at all Total ADITYA-7 score (0-4 normal; 5-9 mild; 10-14 moderate; 15-21 severe): 3 Source: Developed by Drs. Nathan Sanchez, Marlin Garcia, Horacio Gallegos and colleagues, with an educational amaya from [employer]. ADITYA-7 Assessment Billing ADITYA-7 Assessment Tool: ADITYA-7 Assessment 47509 Review of Systems Const Denies body aches, Denies fatigue, Denies fever(s), Denies headache(s) and Denies weakness ENT Denies dizziness, Denies headache(s), Denies nasal congestion, Denies nasal discharge and Denies sore throat Card Denies chest pain, Denies lightheadedness, Denies palpitations and Denies dysp luis daniel Resp Denies chest congestion, Denies cough, Denies dyspnea and Denies wheezing GI Denies abdominal pain, Denies change in bowel habits and Denies heartburn Denies hematuria, Denies urinary frequency, Denies dysuria and Denies urinary urgency Musc Reports no additional complaints Skin/Breast Denies breast pain, Denies breast mass, Denies lesions, Denies rash and Reports other (Still 47-qwuzs-vgq baby) Neuro Denies dizziness, Denies headache(s) and Denies weakness Psych Reports no additional complaints Endo Denies fatigue, Denies polydipsia, Denies polyuria and Denies palpitations Kamran/Lymph Denies easy bruising Aller/Immun Denies wheezing Physical exam (Primary Care) Tobacco/Smoking Status: Tobacco use Status Tobacco use date assessed 07/08/24 12/31/24 14:02 Patient Tobacco Use Status Never used Tobacco 12/31/24 14:02 e-Cigarette/Vaping Use Never Used 12/31/24 14:02 PHQ-9: PHQ-9 Score PHQ-9: Total score 2 12/31/24 14:02 Depression Screening Interpretation: Negative Thrive Assessment: Date of Thrive Assessment Date Thrive assessed 07/08/24 12/31/24 14:02 Currently or been in a relationship where the following occur: I choose not to answer Const Other: Alert oriented x3, no acute distress noted ambulatory normal gait HENMT Head: Yes normocephalic General nose exam: Normal external nose present and No nasal discharge present Face and sinus: Yes face symmetric Mouth: Normal oral and palatal mucosa present, oropharynx normal and moist mucous membranes Eyes General: appearance normal, both eyes and all related structures Neck Neck: Yes full ROM, Yes no lymphadenopathy and Yes supple Resp Effort & Inspection: normal respiratory effort and able to speak in complete sentences Auscultation: clear to auscultation bilaterally Cardio Rate: regular rate Rhythm: regular rhythm Heart sounds: S1 normal heart sound present and S2 normal heart sound present GI Palpation (GI): Soft to palpation, nontender and no guarding Auscultation: normal bowel sounds Skin General skin exam: no rashes or lesions noted Neuro General: gait normal, tone normal, moves all extremities, Normal light touch and pain sensation, no focal motor deficits and CN's II-XI intact bilaterally Cognition (Neuro): normal cognition Gait exam (Neuro): Normal gait present Extrem General: Yes full ROM, Yes no joint enlargement, Yes no pedal edema, Yes no calf tenderness and Yes normal gait Results Reviewed Results Reviewed: Name: Delta Lawrence Age/Sex: 39/F : 1985 Unit#: [id number] Attend Dr: Eugenia Miranda MD Re12/15/24 Status: DEP REF Location: [facility] Disch: SPEC : [id number] STEPH: 12/15/24 STATUS: COMP REQ : [id number] RECD: 12/15/[address]: Eugenia Miranda MD COMP: 12/15/24 ENTERED: 12/15/[address] [facility] [address]: ORDERED: CBC Auto Diff Test Result Flag Reference WBC 3.5 L 4.8-10.8 X10*3/uL RBC 4.13 L 4.20-5.50 X10*6/uL HGB 11.8 L 12.0-16.0 g/dl HCT 38.1 37.0-47.0 % MCV 92.3 80.0-98.0 fL MCH 28.6 27.0-33.0 pg MCHC 31.0 31.0-35.0 g/dl RDW 12.5 11.0-16.0 % PLT 206 160-400 X10*3/uL MPV 10.6 9.4-12.3 fL Neut Pct Auto 47.0 45-73 % ImGran Pct Auto 0.3 0.0-0.4 % Lymp Pct Auto 43.2 H 20-40 % Jasper Pct Auto 6.6 2-11 % Eos Pct Auto 2.3 0-4 % Baso Pct Auto 0.6 0-2 % NRBC Pct Auto 0.0 0.0-0.2 /100WBC ANC Neut Abs # 1.6 L 2.0-8.3 x10*3/uL ImGran Abs Auto 0.01 0.00-0.03 X10*3/uL Lymph Abs Auto 1.5 1.2-4.9 X10*3/uL Jasper Abs Auto 0.2 0.1-1.2 X10*3/uL Eos Abs Auto 0.1 0.0-0.4 X10*3/uL Baso Abs Auto 0.0 0.0-0.2 X10*3/uL NRBC Abs Auto 0.000 0.0-0.012 X10*3/uL Name: Delta Lawrence Age/Sex: 39/F : 1985 Unit#: [id number] Attend Dr: Eugenia Miranda MD Re12/15/24 Status: DEP REF Location: [facility] Disch: SPEC : [id number] STEPH: 12/15/24 STATUS: COMP REQ : [id number] RECD: 12/15/24-[address]: Eugenia Miranda MD COMP: 12/15/24-1427 ENTERED: 12/15/24-[address]: ORDERED: Met Prof Fast, IRON PROF, AST, ALT, Lipid Panel, Vitamin D 25-OH Test Result Flag Reference Sodium 139 135-145 mmol/L Potassium 3.9 3.3-5.1 mmol/L CL 108 96-108 mmol/L CO2 23 22-29 mmol/L Gap 12 12-20 BUN 8 L 9-16 mg/dL Creat 0.68 0.5-1.4 mg/dL eGFR > 60 Chronic Kidney Disease: Estimated GFR < 60 mL/min/1.73m2 Severe Kidney Disease: Estimated GFR < 15 mL/min/1.73m2 FBS 89 60-99 mg/dL CA 9.0 8.4-10.2 mg/dL Iron 129 30-160 mcg/dL TIBC 337 228-428 mcg/dL Saturation 38 15-50 % UIBC 208 ug/dL AST (GOT) 27 5-31 U/L ALT (GPT) 31 0-31 U/L Triglyceride 64 <150 mg/dL Desirable Triglyceride: less than 150 mg/dL Borderline High Triglyceride 150-199 mg/dL High Triglyceride: 200-499 mg/dL Very High Triglyceride: greater than or equal to 5OO mg/dL Cholesterol 204 H <200 mg/dL Desirable Cholesterol: less than 200 mg/dL Borderline High Cholesterol: 200-239 mg/dL High Cholesterol: greater than 239 mg/dL LDL Calculated 123 H <100 mg/dL Desirable LDL: less than 100 mg/dL Near Optimal/Above Optimal LDL: 110-129 mg/dL Borderline High LDL: 130-159 mg/dL High LDL: 160-189 mg/dL Very High LDL: greater than or equal to 190 mg/dL HDL 69 >40 mg/dL Desirable HDL: greater than 40 mg/dL Note: This HDL assay may give artificially low results in patients with liver disease. Vitamin D 25-OH 39.6 >30 ng/mL Health Based Reference Values* < 20 ng/mL Deficient 20-30 ng/mL Insufficient > 30 ng/mL Sufficient Coding Level of Care Code Est Pt Level 4 (58791) Complex EM visit Add On G2211 Diagnoses Environmental and seasonal allergies J30.89 Essential hypertension I10 Dyslipidemia E78.5 Anemia, iron deficiency D50.9 Additional Codes PHQ-9 - 96004 - PHQ-9 Billing: Yes ([id number]) ADITYA-7 Assessment Billing - ADITYA-7 Assessment Tool: ADITYA-7 Assessment 74825 ([id number]) Assessment & Plan Assessment & Plan (1) Environmental and seasonal allergies: Code(s): J30.89 - Other allergic rhinitis Category: Medical Plan: Started on levo cetirizine 5 mg taken 1 tablet at night, patient cautioned that it can cause drowsiness. She was also prescribed montelukast 10 mg to take 1 tablet daily in a.m., (2) Essential hypertension: Comment: Currently on nifedipine. Code(s): I10 - Essential (primary) hypertension Category: Medical Plan: Blood pressure stable and controlled, continue nifedipine ER 60 mg daily (3) Dyslipidemia: Code(s): E78.5 - Hyperlipidemia, unspecified Category: Medical Plan: Lipids have improved, continue adherence to healthy eating habits and regular e xercise. (4) Anemia, iron deficiency: Code(s): D50.9 - Iron deficiency anemia, unspecified Category: Medical Plan: Mild anemia noted on latest labs done. Resume taking ferrous sulfate 325 mg once a day, repeat another CBC in March 2025 Orders: Orders Complete Blood Count Auto Diff 03/30/25 D50.9 - Iron deficiency anemia, unspecified, E78.5 - Hyperlipidemia, unspecified, I10 - Essential (primary) hypertension Lipid Panel 03/30/25 D50.9 - Iron deficiency anemia, unspecified, E78.5 - Hyperlipidemia, unspecified, I10 - Essential (primary) hypertension Medications: New levocetirizine 5 mg PO QPM PRN 30 tabs 1RF allergy symptoms J30.89 - Other allergic rhinitis montelukast 10 mg PO DAILY 30 tabs 4RF J30.89 - Other allergic rhinitis Refilled nifedipine ER 60 mg PO DAILY 90 tabs 1RF
[2024-12-31 14:05] VITALS: BP 110/70; PULSE 90; RESP 16; TEMP 37.1; O2SAT 99; BMI 28.3
== END 2024-12-31 15:01 | disposition home or self-care (01) ==
PROVIDERS: PCP Internal Medicine; Visit Provider Internal Medicine
DX: J30.89 Other allergic rhinitis (principal); I10 Essential (primary) hypertension; E78.5 Hyperlipidemia, unspecified; D50.9 Iron deficiency anemia, unspecified

== ENCOUNTER → 2024-12-31 13:49 | Outpatient (BNVA) | payer OTHER, SELFPAY | PROVIDERS: PCP Internal Medicine; Visit Provider Internal Medicine | DX: I10 Essential (primary) hypertension (principal); D50.9 Iron deficiency anemia, unspecified; J30.89 Other allergic rhinitis; E78.5 Hyperlipidemia, unspecified | CPT/HCPCS: 96127; 99212 ==

== ENCOUNTER 2025-03-25 08:32 | Outpatient (REF) | payer OTHER, SELFPAY ==
[2025-03-25 10:03] LABS: MANUAL DIFF FLAG NO
[2025-03-25 10:29] LABS: Hematocrit 36.7 % (37.0-47.0); Hemoglobin 11.4 g/dl (12.0-16.0); Imm Gran Abs Auto 0.01 X10*3/uL (0.00-0.03); Imm Gran Pct Auto 0.2 % (0.0-0.4); Lymphocytes Absolute Auto 1.7 X10*3/uL (1.2-4.9); Mean Corpuscular HGB Conc 31.1 g/dl (31.0-35.0); Mean Corpuscular Hemoglobin 28.3 pg (27.0-33.0); Mean Corpuscular Volume 91.1 fL (80.0-98.0); NRBC Abs Auto 0.000 X10*3/uL (0.0-0.012); NRBC Pct Auto 0.0 /100WBC (0.0-0.2); Platelet Count 151 X10*3/uL (160-400); Red Blood Count 4.03 X10*6/uL (4.20-5.50); White Blood Count 4.4 X10*3/uL (4.8-10.8)
[2025-03-25 10:42] LABS: Alanine Aminotransferase 31 U/L (0-31); Albumin Level 4.3 g/dL (3.5-5.0); Alkaline Phosphatase 48 U/L (39-117); Anion Gap 13 (12-20); Aspartate Amino Transferase 23 U/L (5-31); Blood Urea Nitrogen 12 mg/dL (9-16); Calcium 8.7 mg/dL (8.4-10.2); Carbon Dioxide 22 mmol/L (22-29); Chloride 108 mmol/L (96-108); Cholesterol 208 mg/dL (<200); Estimated Glomerular Filt Rate > 60; HDL Cholesterol 62 mg/dL (>40); Potassium 3.8 mmol/L (3.3-5.1); Sodium 139 mmol/L (135-145); Total Protein 6.6 g/dL (6.5-8.0); Triglycerides 78 mg/dL (<150)
== END 2025-03-25 08:33 | disposition home or self-care (01) ==
LOC: HO.HMGCLDS 08:32
PROVIDERS: PCP Internal Medicine; Visit Provider Internal Medicine
DX: I10 Essential (primary) hypertension (principal); F41.1 Generalized anxiety disorder; E78.5 Hyperlipidemia, unspecified; D50.9 Iron deficiency anemia, unspecified
CPT/HCPCS: 36415; 80053; 80061; 82306; 84443; 85025

== ENCOUNTER 2025-04-01 11:08 | Outpatient (AMB) | payer OTHER, SELFPAY ==
[2025-04-01 11:11] VITALS: BP 120/76; PULSE 68; RESP 18; TEMP 37.1; O2SAT 98; BMI 28.3
--- NOTE | 2025-04-01 11:11 | MHC.PC.OV ---
Vital Signs 04/01/25 11:11 Height 5 ft 1 in Weight 150 lb BMI 28.3 BP 120/76 Blood Pressure Location Lt brachial Position Sitting Respiration 18 Pulse 68 Pulse Source Pulse Oximeter Temp 98.8 F Temp Source Oral Pulse Oximetry (%) 98 Oxygen Delivery Method Room Air Intake Visit Reasons: 3m follow up Intake Note: Pt is here today for 3 months follow up visit. Allergies No Known Allergies Allergy (Verified 04/01/25 11:16) Medication List - Last Reconciled 04/01/25 by Eugenia Miranda MD cholecalciferol (vitamin D3) 125 mcg PO DAILY ferrous sulfate (Feosol) 325 mg PO DAILY folic acid 0.4 mg PO DAILY nifedipine ER 60 mg PO DAILY PNV,calcium 16-jveq-ykadv acid 27 mg iron- 1 mg ( Vitamins Plus Low Iron) 1 tab PO DAILY Tobacco use date assessed: 04/01/25 Dental Screening Dental Screen Date: 12/31/24 HPI 3m follow up HPI Details - The patient is a 39-year-old female presenting for a follow-up visit to address anemia and hypertension management. - Anemia: Persistent anemia despite iron supplementation and vitamins, with heavy menstrual bleeding contributing to the condition. - Hypertension: Managed with nifedipine, but headaches have led to reduced dosage frequency, considering a switch to amlodipine. - Hypercholesterolemia: LDL cholesterol increased from 123 mg/dL to 131 mg/dL, linked to a high-cholesterol diet. - Vitamin D deficiency: Addressed with vitamin D supplements. - Allergic rhinitis: Discontinued cetirizine and montelukast as symptoms have subsided. [facility] Medical History (Updated 04/05/25 @ 00:17 by Eugenia Miranda MD) Anemia, iron deficiency Environmental and seasonal allergies Dyslipidemia Social isolation in parenthood Essential hypertension Generalized anxiety disorder Numbness and tingling History of COVID-19 Surgical History No pertinent past surgical history Family History Other No pertinent family history in first degree relatives Social History Housing: Condominium Patient Tobacco Use Status: Never used Tobacco e-Cigarette/Vaping Use: Never Used service: No Current occupational status: student Cognitive needs: No Hearing needs: No Vision needs: No Female Reproductive History Menstrual Age of Menarche: 15 Questionnaire Thrive Questionnaire Date Thrive assessed: 12/31/24 ADITYA-7 AMB Questionnaire ADITYA-7 Date ADITYA - 7 assessed: 12/31/24 Source: Developed by Drs. Nathan Sanchez, Marlin Garcia, Horacio Gallegos and colleagues, with an educational amaya from [employer]. Review of Systems Const Denies body aches, Denies fatigue, Denies fever(s), Denies headache(s) and Denies weakness ENT Denies dizziness, Denies headache(s) and Denies nasal congestion Card Denies chest pain, Denies lightheadedness and Denies palpitations GI Denies abdominal pain, Denies change in bowel habits and Denies heartburn Denies hematuria, Denies urinary frequency, Denies dysuria and Denies urinary urgency Musc Reports no additional complaints Skin/Breast Denies breast pain, Denies breast mass, Denies lesions, Denies rash and Reports other (Still 14-dmmsj-yog baby) Neuro Denies dizziness, Denies headache(s) and Denies weakness Psych Reports no additional complaints Endo Denies fatigue, Denies polydipsia, Denies polyuria and Denies palpitations Kamran/Lymph Denies easy bruising Physical exam (Primary Care) Vital Signs: Last Vital Signs Temp 98.8 F 04/01/25 11:11 Pulse 68 04/01/25 11:11 Resp 18 04/01/25 11:11 BP 120/76 04/01/25 11:11 Pulse Ox 98 04/01/25 11:11 Oxygen Delivery Method Room Air 04/01/25 11:11 BMI result Body Mass Index 28.3 Tobacco/Smoking Status: Tobacco use Status Tobacco use date assessed 04/01/25 04/01/25 11:16 Patient Tobacco Use Status Never used Tobacco 04/01/25 11:16 e-Cigarette/Vaping Use Never Used 04/01/25 11:16 Thrive Assessment: Date of Thrive Assessment Date Thrive assessed 12/31/24 04/01/25 11:16 Const Other: Alert oriented x3, no acute distress noted ambulatory normal gait HENMT Head: Yes normocephalic General nose exam: Normal external nose present and No nasal discharge present Face and sinus: Yes face symmetric Mouth: Normal oral and palatal mucosa present, oropharynx normal and moist mucous membranes Eyes General: appearance normal, both eyes and all related structures Neck Neck: Yes full ROM, Yes no lymphadenopathy and Yes supple Resp Effort & Inspection: normal respiratory effort and able to speak in complete sentences Auscultation: clear to auscultation bilaterally Cardio Rate: regular rate Rhythm: regular rhythm Heart sounds: S1 normal heart sound present and S2 normal heart sound present GI Palpation (GI): Soft to palpation, nontender and no guarding Auscultation: normal bowel sounds Skin General skin exam: no rashes or lesions noted Neuro General: gait normal, tone normal, moves all extremities, Normal light touch and pain sensation, no focal motor deficits and CN's II-XI intact bilaterally Cognition (Neuro): normal cognition Gait exam (Neuro): Normal gait present Extrem General: Yes full ROM, Yes no joint enlargement, Yes no pedal edema, Yes no calf tenderness and Yes normal gait Results Reviewed Results Reviewed: Name: Delta Lawrence Age/Sex: 39/F : 1985 Unit#: [id number] Attend Dr: Eugenia Miranda MD Re03/25/25 Status: DEP REF Location: [facility] Disch: SPEC : [id number] STEPH: 03/25/25 STATUS: COMP REQ : [id number] RECD: 03/25/[address]: Eugenia Miranda MD COMP: 03/25/25 ENTERED: 03/25/25 [facility] DR: ORDERED: CBC Auto Diff Test Result Flag Reference WBC 4.4 L 4.8-10.8 X10*3/uL RBC 4.03 L 4.20-5.50 X10*6/uL HGB 11.4 L 12.0-16.0 g/dl HCT 36.7 L 37.0-47.0 % MCV 91.1 80.0-98.0 fL MCH 28.3 27.0-33.0 pg MCHC 31.1 31.0-35.0 g/dl RDW 13.0 11.0-16.0 % PLT 151 # L 160-400 X10*3/uL MPV 11.1 9.4-12.3 fL Neut Pct Auto 52.1 45-73 % ImGran Pct Auto 0.2 0.0-0.4 % Lymp Pct Auto 37.8 20-40 % Kent Pct Auto 6.9 2-11 % Eos Pct Auto 2.5 0-4 % Baso Pct Auto 0.5 0-2 % NRBC Pct Auto 0.0 0.0-0.2 /100WBC ANC Neut Abs # 2.3 2.0-8.3 x10*3/uL ImGran Abs Auto 0.01 0.00-0.03 X10*3/uL Lymph Abs Auto 1.7 1.2-4.9 X10*3/uL Kent Abs Auto 0.3 0.1-1.2 X10*3/uL Eos Abs Auto 0.1 0.0-0.4 X10*3/uL Baso Abs Auto 0.0 0.0-0.2 X10*3/uL NRBC Abs Auto 0.000 0.0-0.012 X10*3/uL Name: Delta Lawrence Age/Sex: 39/F : 1985 Unit#: [id number] Attend Dr: Eugenia Miranda MD Re03/25/25 Status: DEP REF Location: [facility] Disch: SPEC : [id number] STEPH: 03/25/25 STATUS: COMP REQ : [id number] RECD: 03/25/[address] [facility] [address]: Eugenia Miranda MD COMP: 03/25/253 ENTERED: 03/25/25 [facility] [address]: ORDERED: CMP Fast, Lipid Panel, Vitamin D 25-OH, TSH Rflx Test Result Flag Reference Sodium 139 135-145 mmol/L Potassium 3.8 3.3-5.1 mmol/L CL 108 96-108 mmol/L CO2 22 22-29 mmol/L Gap 13 12-20 BUN 12 9-16 mg/dL Creat 0.66 0.5-1.4 mg/dL eGFR > 60 Chronic Kidney Disease: Estimated GFR < 60 mL/min/1.73m2 Severe Kidney Disease: Estimated GFR < 15 mL/min/1.73m2 FBS 96 60-99 mg/dL CA 8.7 8.4-10.2 mg/dL Total Bili 0.6 0.0-1.0 mg/dL AST (GOT) 23 5-31 U/L ALT (GPT) 31 0-31 U/L Protein, Total 6.6 6.5-8.0 g/dL Alb 4.3 3.5-5.0 g/dL Triglyceride 78 <150 mg/dL Desirable Triglyceride: less than 150 mg/dL Borderline High Triglyceride 150-199 mg/dL High Triglyceride: 200-499 mg/dL Very High Triglyceride: greater than or equal to 5OO mg/dL Cholesterol 208 H <200 mg/dL Desirable Cholesterol: less than 200 mg/dL Borderline High Cholesterol: 200-239 mg/dL High Cholesterol: greater than 239 mg/dL LDL Calculated 131 H <100 mg/dL Desirable LDL: less than 100 mg/dL Near Optimal/Above Optimal LDL: 110-129 mg/dL Borderline High LDL: 130-159 mg/dL High LDL: 160-189 mg/dL Very High LDL: greater than or equal to 190 mg/dL HDL 62 >40 mg/dL Desirable HDL: greater than 40 mg/dL Note: This HDL assay may give artificially low results in patients with liver disease. Alk Phos 48 39-117 U/L Vitamin D 25-OH 50.3 >30 ng/mL Health Based Reference Values* < 20 ng/mL Deficient 20-30 ng/mL Insufficient > 30 ng/mL Sufficient *Christiano ROLAND. N Engl J Med. 2007;357:266-280 There is no well-established upper level of normal vitamin D levels. Some laboratories use 50 ng/mL as an upper limit of normal. However, toxicity is patient-dependent and may occur at any level. Careful correlation with the patient's presentation is necessary and, if there is concern for vitamin D toxicity, treatment should be considered irrespective of the serum level. Care must be taken in interpreting Vitamin D results from different laboratories and methodologies. Published data demonstrated that results from patients undergoing hemodialysis may show a negative bias when tested with various automated 25-OH vitamin D assays when compared to LC-MS/MS. When testing samples from patients whose predominant form of Vitamin D is Vitamin D2, such as patients receiving Vitamin D2 supplementation, results that are subtherapeutic should be confirmed with another method such as LC-MS/MS. TSH 0.69 0.32-4.0 uIU/mL Coding Level of Care Code Est Pt Level 4 (22375) Diagnoses Essential hypertension I10 Iron deficiency anemia, unspecified iron deficiency anemia type D50.9 Iron deficiency anemia type: unspecified iron deficiency Dyslipidemia E78.5 Assessment & Plan Assessment & Plan (1) Essential hypertension: Comment: Currently on nifedipine. Code(s): I10 - Essential (primary) hypertension Category: Medical (2) Anemia, iron deficiency: Code(s): D50.9 - Iron deficiency anemia, unspecified Category: Medical Qualifiers: Iron deficiency anemia type: unspecified iron deficiency Qualified Code(s): D50.9 - Iron deficiency anemia, unspecified (3) Dyslipidemia: Code(s): E78.5 - Hyperlipidemia, unspecified Category: Medical Plan The patient will continue with iron supplements and vitamins to address anemia, with a focus on dietary intake to support iron levels. Hypertension management will involve transitioning from nifedipine to amlodipine to reduce side effects, particularly headaches. The patient is advised to monitor cholesterol levels and adjust dietary habits to manage hypercholesterolemia, with a follow-up scheduled to reassess lipid levels. Heavy menstrual bleeding should be discussed with the patient's FISH PROCESSOR to explore potential management options, including the possibility of using control for regulation. Patient was informed and verbally consented to the use of an ambient scribe for clinic note documentation during this visit. Medications: New amlodipine 5 mg PO DAILY 90 tabs 2RF I10 - Essential (primary) hypertension
--- OUTSIDE RECORDS SUMMARY | 2025-04-01 11:44 | XMS_ITS | Clinical Summary ---
Author Organization [facility] Address [address] [place] [id number] Phone Care Team Providers Care Clinical Staff Educator Name Role Phone Eugenia Miranda MD Primary Care Provider Allergies No known active allergies Medications ferrous gluconate 324 mg (38 mg elemental) tablet Take by mouth. 01/25/2024 Active acetaminophen (TYLENOL) 325 mg tablet Take 3 tablets (975 mg total) by mouth every 6 (six) hours as needed for headache. 90 tablet 1 03/30/2024 Active ibuprofen (ADVIL,MOTRIN) 600 MG tablet Take 1 tablet (600 mg total) by mouth every 6 (six) hours as needed. 90 tablet 04/08/2024 Active NIFEdipine (ADALAT CC) 30 MG 24 hr tablet Take 1 tablet (30 mg total) by mouth daily. 90 tablet 04/22/2024 Active Active Problems Problem Noted Date Diagnosed Date Pre-eclampsia in period 03/25/2024 Assessment & Plan (04/22/2024 10:46 AM EDT): Patient's BP 143/87, denies signs/symptoms of preE Reports BP has been in the 140s systolic consistently Patient taking Nifedipine ER 30 mg daily as directed Patient delivered on 03/05, now outside 6 week window Concern at this time is for chronic hypertension Patient has visit with PCP scheduled for June Advised patient that it is important to follow up with PCP as she may need prison management of her blood pressure outside of Three month refill of Nifedipine sent to pharmacy Assessment & Plan (04/08/2024 11:03 AM EDT): Patient reports BP today is 127/85 Patient has been monitoring her BP at home and reports normotensive values, patient to continue home BP monitoring Patient has remained asymptomatic Plan to continue Nifedipine ER 30 mg daily Follow up visit in 2 weeks, if patient remains normotensive at that time, will discontinue anti-hypertensive medication Warning signs/symptoms reviewed Assessment & Plan (03/30/2024 5:07 PM EDT): Patient mild range and asymptomatic. Patient to continue Nifedipine ER 30 mg daily. Rx for BP cuff sent to pharmacy. Patient given BP parameters/when to call, warning signs/symptoms. Patient's neighbor is a nurse who will help her keep track of pressures/make sure she is taking them properly. Follow up 1 week, telehealth. Resolved Problems Problem Noted Date Diagnosed Date Resolved Date Pe (pre-eclampsia), third trimester 03/26/2024 03/26/2024 Social History Tobacco Use Types Packs/Day Years Used Date Smoking Tobacco: Never Smokeless Tobacco: Never Tobacco Cessation:Counseling Given: Not Answered Alcohol Use Standard Drinks/Week Comments Not Currently 0 (1 standard drink = 0.6 oz pur e alcohol) Education Answer Date Recorded Are you interested in more education? Not on alida e 03/25/2024 Are you concerned about learning? Not on file 03/25/2024 No 03/25/2024 No 03/25/2024 Digital Access Answer Date Recorded No 03/25/2024 No 03/25/2024 Reliable internet access at home? Not on file 03/25/2024 Device with a working camera? Not on file Intimate Partner Violence Answer Date R ecorded Are you denied basic needs s uch as food, clothing, or medical care? No 03/25/2024 In the past 12 months have y ou been in a relationship with a person who hurts, threatens, or tries to control you? No 03/25/2024 Are you denied basic needs s uch as food, clothing, or medical care? No 03/25/2024 In the past 12 months have y ou been in a relationship with a person who hurts, threatens, or tries to control you? No 03/25/2024 Comments No Sex and Gender Information Value Date Recorded Sex Assigned at Female 03/25/2024 10:24 AM EDT Legal Sex Female 9:54 AM EDT Gender Identity Female 03/25/2024 10:24 AM EDT Sexual Orientation Don't know 03/25/2024 10 :24 AM EDT Last Filed Vital Signs Vital Sign Reading Time Taken Comments Blood Pressure 148/90 03/30/2024 10:17 AM EDT Pulse 84 03/26/2024 4:00 AM EDT Temperature 36.7 C (98.1 F) 03/26/2024 7:00 AM EDT Respiratory Rate 16 03/26/2024 2:00 PM EDT Oxygen Saturation 100% 03/26/2024 2:00 PM EDT Inhaled Oxygen Concentration - - Weight 64 kg (141 lb) 03/25/2024 10:10 AM EDT Height 162.6 cm (5' 4 ) 03/25/2024 10:10 AM EDT Body Mass Index 24.2 03/25/2024 10:10 AM EDT Plan of Treatment Health Maintenance Due Date Last Done Comments DEPRESSION SCREENING 1996 HEPATITIS C SCREENING 2002 HIV ONE-TIME SCREENING (18-6 5 YEARS) 2002 PAP SMEAR 2005 COVID-19 VACCINE (2023-2 5 season) 2024 MAMMOGRAM 2024 Adult Td,Tdap Booster 12/30/2033 12/31/2023 SMOKING STATUS SCREENING (On ce After 26 Yrs) Completed 04/22/2024 HEPATITIS A VACCINES Aged Out No long er eligible based on patient's age to complete this topic HIB VACCINES Aged Out No longer eligi ble based on patient's age to complete this topic MENINGOCOCCAL VACCINES (ACWY) Aged Out No longer eligible based on patient's age to complete this topic MENINGOCOCCAL VACCINES (B) Aged Out N o longer eligible based on patient's age to complete this topic PNEUMOCOCCAL VACCINES (0-49 years) Aged Out No longer eligible based on patient's age to complete this topic Medical Devices Not on file Insurance [facility] ACO [facility] ACO ACO ACO Care Teams Clinical Staff Educator Relationship Specialty Start Date End Date Eugenia Miranda MD [address] [facility] [place] [id number] PCP - General Internal Medicine 03/25/24 Additional Source Comments The information contained in this document represents components of the legal health record. It is not the complete legal health record.[facility]
== END 2025-04-01 12:04 | disposition home or self-care (01) ==
LOC: HO.HMCC 11:08
PROVIDERS: PCP Internal Medicine; Visit Provider Internal Medicine
DX: I10 Essential (primary) hypertension (principal); D50.9 Iron deficiency anemia, unspecified; E78.5 Hyperlipidemia, unspecified

== ENCOUNTER → 2025-04-01 11:08 | Outpatient (BNVA) | payer OTHER, SELFPAY | PROVIDERS: PCP Internal Medicine; Visit Provider Internal Medicine | DX: I10 Essential (primary) hypertension (principal); E78.00 Pure hypercholesterolemia, unspecified; E78.5 Hyperlipidemia, unspecified; E55.9 Vitamin D deficiency, unspecified; D50.9 Iron deficiency anemia, unspecified | CPT/HCPCS: 99212 ==

== ENCOUNTER 2025-04-09 10:28 | Outpatient (REF) | payer OTHER, SELFPAY ==
--- NOTE | ~2025-04-09 | MM_ITS ---
EXAMINATION: MM SCREENING DIGITAL BREAST TOMOSYNTHESIS, BILATERAL CLINICAL INFORMATION: Screening. Asymptomatic. COMPARISON: None. This is a baseline study. TECHNIQUE: Digital breast tomosynthesis is performed in both the craniocaudal and mediolateral oblique views along with computer-aided detection (CAD). Patient tried to breast feed prior to today's examination. FINDINGS: BREAST COMPOSITION: The breasts are heterogeneously dense, which may obscure small masses (ACR BI-RADS breast composition Category c). BILATERAL BREASTS: No significant masses, suspicious calcifications or other abnormalities are seen in either breast. MM/MM tomosynthesis screening BI IMPRESSION: BILATERAL BREASTS: Negative, no mammographic evidence of malignancy. Normal interval follow-up is recommended in 12 months. ASSESSMENT: BI-RADS 1 - Negative RECOMMENDATION: Routine annual mammography screening. FOLLOW-UP: 1 year F/U This examination should not preclude the clinical evaluation of a suspicious palpable abnormality. This patient's information was entered into a reminder system with a target due date for their next mammogram. Electronically signed by: Vik Cameron MD 04/13/2025 01:29 PM EDT
--- OUTSIDE RECORDS SUMMARY | 2025-04-09 10:34 | XMS_ITS | Clinical Summary ---
Author Organization [facility] Address [address] [place] [phone] Phone Care Team Providers Care Thread Drawer Name Role Phone Eugenia Miranda MD Primary [...] up with PCP as she may need terminal worker management of her blood pressure outside of [...] topic Medical Devices Not on file Insurance [facility] ACO [facility] ACO ACO ACO Care Teams Thread Drawer Relationship Specialty Start Date End Date Eugenia Miranda MD [address] [facility] [id number] PCP - General Internal Medicine 03/25/24 Additional Source Comments The information contained in this document represents components of the legal health record. It is not the complete legal health record.[facility]
== END 2025-04-09 10:29 | disposition home or self-care (01) ==
LOC: HO.MAMMO 10:28
PROVIDERS: PCP Internal Medicine; Visit Provider Advanced Practice Midwife
DX: Z12.31 Encounter for screening mammogram for malignant neoplasm of breast (principal)
CPT/HCPCS: 77063; 77067

== ENCOUNTER → 2025-04-09 10:30 | Outpatient (BNV) | payer OTHER, SELFPAY | PROVIDERS: PCP Internal Medicine; Visit Provider Radiology Body Imaging | DX: Z12.31 Encounter for screening mammogram for malignant neoplasm of breast (principal) | CPT/HCPCS: 77063; 77067 ==

== ENCOUNTER 2025-07-21 14:00 | Outpatient (AMB) | payer OTHER, SELFPAY ==
--- NOTE | 2025-07-21 14:08 | MHC.OFFVIS ---
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 Vice President Mission Integration: Vice President Mission Integration Present (Melissa) Accompanied by: Self / Same As Patient Allergies No Known Allergies Allergy (Verified 07/21/25 14:18) Medication List - Last Reconciled 07/21/25 by Gretel El CNM amlodipine 5 mg PO DAILY cholecalciferol (vitamin D3) 125 mcg PO DAILY ferrous sulfate (Feosol) 325 mg PO DAILY folic acid 0.4 mg PO DAILY nifedipine ER 60 mg PO DAILY PNV,calcium 77-qepy-amqyo acid 27 mg iron- 1 mg ( Vitamins Plus Low Iron) 1 tab PO DAILY Is last menstrual period known: Yes Last menstrual period: 07/08/25 Post menopausal: No Patient : No HPI HPI CITY CARRIER ASSISTANT annual exam/anemia ( control consult): Details: 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 She delivered 16 months ago. She had been in a relationship with somebody who is long distance and when she knew that he was coming for trip she would start taking her norethindrone control pills with the beginning of her. And continue them for 7 days after he would leave but still she got . He did not want anything to do with her in the so she was alone in the and delivered alone and is a single mother with her 2 children her oldest was born in [facility] and her 77-jihbs-god born at [facility]. 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 She continues to be anemic even when she takes the iron because her periods have become very heavy since about 3 or 4 months after giving . She spoke to her doctor about it who suggested she come here and talk about being on control to help control her menses. She has hypertension she was maintained on nifedipine and is now on amlodipine with the her blood pressure is within normal limits today but combination OCPs would be contraindicated. She is not interested in taking a medicine if she can help it in fact she still has the norethindrone control pills that she remembered she had from pre and she did try them in April but they did not help her periods get any teacher public health. She is not become sexually active and has no intention of ever doing so again. ON LICENSE OF [facility] Medical History (Updated 07/21/25 @ 15:35 by Gretel El CNM) Anemia, iron deficiency Environmental and seasonal allergies Dyslipidemia Social isolation in parenthood Essential hypertension Generalized anxiety disorder Numbness and tingling History of COVID-19 Surgical History No pertinent past surgical history Family History Other No pertinent family history in first degree relatives Social History Housing: Condominium Patient Tobacco Use Status: Never used Tobacco e-Cigarette/Vaping Use: Never Used Patient : No service: No Current occupational status: student Cognitive needs: No Hearing needs: No Vision needs: No Female Reproductive History Menstrual Age of Menarche: 15 Duration of menses: <3 days Date of last menstrual period: 07/08/25 control method: none Total pregnancies: 3 Full term: 2 Ab spontaneous: 1 Date of last pap smear: 12/21/24 (negative pap smear,negative hpv ) History of abnormal pap smear: Yes (HPV ) Physical Exam Vital Signs: Last Vital Signs BP 122/76 07/21/25 14:19 BMI result Body Mass Index 0.3 Const General: healthy appearing, comfortable, no acute distress, well developed and alert Nutritional Appearance: average body habitus Orientation/consciousness: patient oriented x3 Limitations: no limitations HEENT Head: Yes normocephalic Neck Neck: Yes normal visual inspection Chest Chest palpation & inspection: normal inspection of the chest Breast/axilla inspection: normal inspection of the breasts and normal inspection of the axillae Breast/axilla palpation: normal palpation of the breasts and normal palpation of the axillae Resp Effort & Inspection: normal respiratory effort GI Inspection: Yes normal to inspection, No Abdominal wall edema and No distended Palpation (GI): Soft to palpation and nontender Other: External exam within normal limits vagina pink and moist very normal appearing healthy mucous her LMP was 07/08/2025. Cervix multiparous pink smooth healthy appearing normal clear mucus uterus small midposition to anteverted mobile nontender adnexa nontender good muscle tone with Kegel. General: Yes bladder normal to palpation External Female Exam: normal external appearance and normal appearance of the urethra Speculum Exam - Vagina: normal appearance of the vagina, normal palpation and normal vaginal discharge Speculum Exam - Cervix: normal appearance of the cervix, normal palpation and nontender Bimanual exam- vagina & uterus: normal bimanual exam, normal palpation, uterine size normal, bladder normal to palpation, consistency normal, normal palpation, uterine mobility normal, uterine shape normal, No Cervical tenderness present, non-tender and no cervical motion tenderness Bimanual Exam- Adnexa, other: normal adnexae, no masses, normal and No adnexal tenderness Neuro General: patient oriented x3 Results Reviewed Results Reviewed: Name: Delta Lawrence Age/Sex: 39/F Attending: Gretel El CNM : 1985 Submitted by: Gretel El CNM Copies to: Eugenia Miranda MD MR #: [id number] Status: DEP REF Collected: 12/18/24 Location: [facility] Received: 12/21/24 Interpretation Satisfactory for evaluation. Negative for intraepithelial lesion or malignancy. HPV High Risk: Negative HPV Genotyping 16: Negative HPV Genotyping 18: Negative Clinical Information LMP: mUnknown date Previous PAP test: Unknown date/findings Material Received ThinPrep-Cervical Copies To Eugenia Miranda MD [facility] [address] Gretel El CNM [facility] [address] [place] [address], 3[address] Floor [place], [place] [id number] Electronically Signed By: BRODIE Carter (ASCP) 12/23/24 0824 As of June 17, 2024, the technical services to include automated prescreening performed by the ThinPrep Imaging System, PAP screening and HPV testing will be performed at [facility] (CLIA #[id number]), [address] [place] [id number]. Testing for HPV was performed using the Guillermina CARL 6800 system. The presence of HPV in the female genital tract is associated with a number of diseases, including cervical carcinoma. The HPV DNA high risk pool tests for HPV 31, 33, 35, 39, 45, 51, 52, 56, 58, 59, 66 and 68. The testing for HPV 16 and 18 genotypes has also been performed. A positive result indicates detection of nucleic acid sequences from one or more subtypes, whereas a negative result indicates such sequences were not detected. Patient: Delta Lawrence Age/Sex: 39/F MR#: [id number] Page 1 of 2 Gynecologic Cytology [id number] All professional services are performed by [facility] ([address] [place] [address]; ; CLIA #[id number]). The PAP Test is a screening procedure with the inherent possibility of both false negative and false positive results. Results should be interpreted in the context of historic and current clinical findings. Reliability of the PAP Test is enhanced by performing the test on a regular repetitive basis. Patient: Delta Lawrence Age/Sex: 39/F MR#: [id number]. 10/26/2022 Pap showed positive HPV. Assessment & Plan Assessment & Plan (1) Screening for malignant neoplasm of cervix: Comment: 08/01/2022 Pap unsatisfactory due secondary to blood/menses needs repeat./10/26/22 pap=pos HPV, pap neg, repeat 1 yr; patient had in interim. Pap with HPV co testing done 12/18/2024.= negative with negative HPV.; Consider repeat Pap November of 2025.... Code(s): Z12.4 - Encounter for screening for malignant neoplasm of cervix Category: Medical (2) Breast cancer screening: Comment: Ordered, may be delayed until she finishes Code(s): Z12.39 - Encounter for other screening for malignant neoplasm of breast Category: Medical (3) Lactating mother: Comment: 07/21/2025 patient is still nursing her 61-ljczw-qye twice a day. Code(s): Z39.1 - Encounter for care and examination of lactating mother Category: Medical (4) Anemia, iron deficiency: Comment: 07/21/2025 discussed options to deal with heavy menses planning on Mirena IU S insertion with next menses... Code(s): D50.9 - Iron deficiency anemia, unspecified Category: Medical Qualifiers: Iron deficiency anemia type: unspecified iron deficiency Qualified Code(s): D50.9 - Iron deficiency anemia, unspecified (5) Essential hypertension: Comment: Currently on nifedipine.; as of 07/21/2025 patient is now currently managed on amlodipine . 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 She delivered 16 months ago. She had been in a relationship with somebody who is long distance and when she knew that he was coming for trip she would start taking her norethindrone control pills with the beginning of her. And continue them for 7 days after he would leave but still she got . He did not want anything to do with her in the so she was alone in the and delivered alone and is a single mother with her 2 children her oldest was born in [facility] and her 79-ygcjo-gae born at [facility]. 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 She continues to be anemic even when she takes the iron because her periods have become very heavy since about 3 or 4 months after giving . She spoke to her doctor about it who suggested she come here and talk about being on control to help control her menses. She has hypertension she was maintained on nifedipine and is now on amlodipine with the her blood pressure is within normal limits today but combination OCPs would be contraindicated. She is not interested in taking a medicine if she can help it in fact she still has the norethindrone control pills that she remembered she had from pre and she did try them in April but they did not help her periods get any teacher public health. She is not become sexually active and has no intention of ever doing so again. Today in this visit we discussed what her options are and her probable best option would be a Mirena IUD and she is very interested in she just wanted to know for sure that she would not gain weight on it and that she would be not made in for trial should she ever meet anyone else and get in the future and wished to have children again in the future. I reviewed those side effects and possible risks which would not include these if normally placed and no other extraneous infections occurred. Discussed decreased libido and possible mood changes but this is not of concern for her today she does want to make her periods teacher public health they only last a couple of days but they are very very heavy. Discussed in detail and we will plan for a Mirena insertion with her next period and if not that menses then the menses after that . Orders: Orders MM tomosynthesis screening BI Today D50.9 - Iron deficiency anemia, unspecified, I10 - Essential (primary) hypertension, Z12.31 - Encounter for screening mammogram for malignant neoplasm of breast, Z12.39 - Encounter for other screening for malignant neoplasm of breast, Z12.4 - Encounter for screening for malignant neoplasm of cervix, Z39.1 - Encounter for care and examination of lactating mother Coding Level of Care Code Est Pt Prev Care 40-64y(00038) Diagnoses Screening for malignant neoplasm of cervix Z12.4 Breast cancer screening Z12.39 Lactating mother Z39.1 Iron deficiency anemia, unspecified iron deficiency anemia type D50.9 Iron deficiency anemia type: unspecified iron deficiency Essential hypertension I10
[2025-07-21 14:19] VITALS: BP 122/76
--- OUTSIDE RECORDS SUMMARY | 2025-07-21 17:02 | XMS_ITS | Clinical Summary ---
Author Organization [facility] Address [address] [place] [address] Phone Care Team Providers Care Rubber Tester Name Role Phone Eugenia Miranda MD Primary [...] up with PCP as she may need shelter management of her blood pressure outside of [...] (18-6 5 YEARS) 2002 PAP SMEAR 2005 MAMMOGRAM 2024 INFLUENZA VACCINE (#1) 2025 09/13/2023 COVID-19 VACCINE (2024-2 6 season) 2025 Adult Td,Tdap Booster 12/30/2033 12/31/2023 SMOKING STATUS [...] topic Medical Devices Not on file Insurance [facility] ACO ACO ACO Care Teams Rubber Tester Relationship Specialty Start Date End Date Eugenia Miranda MD [address] [place] [address] PCP - General Internal Medicine 03/25/24 Additional Source Comments The information contained in this document represents components of the legal health record. It is not the complete legal health record.[facility]
== END 2025-07-21 15:34 | disposition home or self-care (01) ==
LOC: HO.HWSM 14:00
PROVIDERS: PCP Internal Medicine; Visit Provider Advanced Practice Midwife
DX: Z01.419 Encounter for gynecological examination (general) (routine) without abnormal findings (principal); D50.9 Iron deficiency anemia, unspecified; I10 Essential (primary) hypertension; Z12.39 Encounter for other screening for malignant neoplasm of breast; Z39.1 Encounter for care and examination of lactating mother
CPT/HCPCS: 99396; 99459

== ENCOUNTER → 2025-07-21 14:00 | Outpatient (BNVA) | payer OTHER, SELFPAY ==
[2025-07-26 12:33] LABS: Bacterial Vaginosis PCR NEGATIVE (Negative); Candida Group PCR NOT DETECTED (Not Detect); Candida glab krusei PCR NOT DETECTED (Not Detect); Trichomonas vaginalis PCR NOT DETECTED (Not Detect)
[2025-07-26 13:02] LABS: CT PCR NOT DETECTED (Not Detect.); NG PCR NOT DETECTED (Not Detect.)
== END ==
PROVIDERS: PCP Internal Medicine; Visit Provider Advanced Practice Midwife
DX: Z12.4 Encounter for screening for malignant neoplasm of cervix (principal); Z12.39 Encounter for other screening for malignant neoplasm of breast; Z39.1 Encounter for care and examination of lactating mother; D50.9 Iron deficiency anemia, unspecified; I10 Essential (primary) hypertension; Z30.09 Encounter for other general counseling and advice on contraception; Z11.3 Encounter for screening for infections with a predominantly sexual mode of transmission; Z11.51 Encounter for screening for human papillomavirus (HPV)
CPT/HCPCS: 81515; 87491; 87591; 99396

== ENCOUNTER 2025-08-09 15:20 | Outpatient (AMB) | payer OTHER, SELFPAY ==
--- NOTE | 2025-08-09 15:28 | A.OFFVIS_ITS ---
Intake Visit Reasons: Mirena IUD Marketing Producer: Marketing Producer Present (Melissa) Accompanied by: Self / Same As Patient Allergies No Known Allergies Allergy (Verified 07/21/25 14:18) Is last menstrual period known: Yes Last menstrual period: 08/09/25 Post menopausal: No Patient : No HPI HPI Mirena IUD: Details: Patient has extremely heavy menses and anemia. She discussed relief of the heavy menses at her last visit and decided to try a Mirena IUD she is not planning on being sexually active at this point ever again, though if she got she might consider it. She has 2 children born vaginally she is still nursing her youngest baby. She wants help with her heavy menses though she is hoping they do not go away completely Her periods started today and typically only last 2 days. [facility] Medical History Anemia, iron deficiency Environmental and seasonal allergies Dyslipidemia Social isolation in parenthood Essential hypertension Generalized anxiety disorder Numbness and tingling History of COVID-19 Surgical History No pertinent past surgical history Family History Other No pertinent family history in first degree relatives Social History Housing: Condominium Patient Tobacco Use Status: Never used Tobacco e-Cigarette/Vaping Use: Never Used service: No Current occupational status: student Cognitive needs: No Hearing needs: No Vision needs: No Female Reproductive History Menstrual Age of Menarche: 15 Date of last menstrual period: 08/09/25 control method: none Total pregnancies: 3 Full term: 2 Ab spontaneous: 1 Date of last pap smear: 12/18/24 (negative pap smear, negative hpv ) History of abnormal pap smear: Yes (HPV) Date of Mammogram: 04/09/25 (bi rad 1) Physical Exam Other: Patient has very heavy menses see the procedure section. External Female Exam: normal external appearance Speculum Exam - Vagina: normal appearance of the vagina and normal vaginal discharge Speculum Exam - Cervix: normal appearance of the cervix Bimanual exam- vagina & uterus: normal bimanual exam, uterine size normal, consistency normal, uterine mobility normal, uterine shape normal and non-tender Bimanual Exam- Adnexa, other: normal adnexae, no masses and No adnexal tenderness Office Procedures IUD Insert/Removal Details Details: ---Patient is here for her IUD insertion. Bimanual exam was done. Her uterus is firm, nontender, and appropriate sized, and is anteverted. She has very very heavy menses with passage of clots. . ---The cervix was cleaned with Betadine. Tenaculum was placed on the cervix slowly to minimize cramping. The uterus was sounded slowly and gently she show a measurement of 7 cm. The IUD was removed from its package, after checking identifying information and lot dates and expiration dates and and gently inserted into the os, as per the IUD insertion procedure. The strings were then trimmed to 3centimetres. The tenaculum was removed and gentle pressure applied with a swab, until any bleeding subsided from the tenaculum sites. The speculum was gently removed. The patient sat up. I Reviewed what to expect, and what indications would necessitate a call. Pt to call for fever, untoward pain or cramping. I reviewed any appropriate backup method. Pt to return for recheck as scheduled. 44211-VPF Insertion Procedure code (CPT) selection complete Office Meds Mirena 21 mcg/24 hr (up to 8 years) 52 mg intrauterine device Performing Provider: Gretel El CNM Performing Location: [facility] Administered by: Katie Diana CMA on 08/09/25 16:44 Dose Route Admin Location Dispensed Lot Number Expiration Date [facility] [employer] 1 device intrauterine [facility] 1 device [id number] 09/24/27 73673-610-03 [facility] Total Dispensed Waste 1 device 0 % Assessment & Plan Assessment & Plan (1) Lactating mother: Comment: 07/21/2025 patient is still nursing her 90-ucouj-wbq twice a day. Code(s): Z39.1 - Encounter for care and examination of lactating mother Category: Medical (2) Essential hypertension: Comment: Currently on nifedipine.; as of 07/21/2025 patient is now currently managed on amlodipine . Code(s): I10 - Essential (primary) hypertension Category: Medical (3) Anemia, iron deficiency: Comment: 07/21/2025 discussed options to deal with heavy menses planning on Mirena IU S insertion with next menses... Code(s): D50.9 - Iron deficiency anemia, unspecified Category: Medical Qualifiers: Iron deficiency anemia type: unspecified iron deficiency Qualified Code(s): D50.9 - Iron deficiency anemia, unspecified (4) Encounter for insertion of mirena IUD: Comment: Inserted on day 1 of her heavy menses 08/09/2025 for menorrhagia. Code(s): Z30.430 - Encounter for insertion of intrauterine contraceptive device Category: Medical Plan Smooth insertion of Mirena IUD patient did find placement of the tenaculum painful. She tolerated the rest of the procedure easily. She may take ibuprofen 600 mg with food in her stomach every 6 hours if she needs to for the cramping. Assured that this is okay while nursing. Expect that she may have s ome cramping which will gradually subside and that future periods may hopefully become yard inspector. We will see her in about 6 weeks to see how she is doing with it. Reviewed self-care and danger signs and what would indicate either infection or expulsion or some other difficulty. Orders: Orders AMB IUD Insertion/Removal - Practice Supplied Today Z30.430 - Encounter for insertion of intrauterine contraceptive device Coding Level of Care Code Est Pt Level 3 (03676) Diagnoses Lactating mother Z39.1 Essential hypertension I10 Iron deficiency anemia, unspecified iron deficiency anemia type D50.9 Iron deficiency anemia type: unspecified iron deficiency Encounter for insertion of mirena IUD Z30.430 CPT Codes Details - CPT: 74555-BUD Insertion ([id number])
--- OUTSIDE RECORDS SUMMARY | 2025-08-09 21:49 | XMS_ITS | Clinical Summary ---
Author Organization [facility] Address [address] [place] [address] Phone Care Team Providers Care Civil Engineering Manager Name Role Phone Eugenia Miranda MD Primary [...] up with PCP as she may need intermediate management of her blood pressure outside of [...] topic Medical Devices Not on file Insurance [facility] ACO ACO ACO Care Teams Civil Engineering Manager Relationship Specialty Start Date End Date Eugenia Miranda MD [address] [facility] [place] [facility] [place] [address] PCP - General Internal Medicine 03/25/24 Additional Source Comments The information contained in this document represents components of the legal health record. It is not the complete legal health record.[facility]
== END 2025-08-10 08:05 | disposition home or self-care (01) ==
LOC: HO.HWS 15:20
PROVIDERS: PCP Internal Medicine; Visit Provider Advanced Practice Midwife
DX: Z39.1 Encounter for care and examination of lactating mother (principal); I10 Essential (primary) hypertension; D50.9 Iron deficiency anemia, unspecified; Z30.430 Encounter for insertion of intrauterine contraceptive device
CPT/HCPCS: 58300

== ENCOUNTER → 2025-08-09 15:20 | Outpatient (BNVA) | payer OTHER, SELFPAY | PROVIDERS: PCP Internal Medicine; Visit Provider Advanced Practice Midwife | DX: Z30.430 Encounter for insertion of intrauterine contraceptive device (principal); Z39.1 Encounter for care and examination of lactating mother; I10 Essential (primary) hypertension; D50.9 Iron deficiency anemia, unspecified; N92.0 Excessive and frequent menstruation with regular cycle | CPT/HCPCS: 58300; J7298 ==

== ENCOUNTER 2025-08-14 11:29 | Outpatient (REF) | payer OTHER, SELFPAY ==
--- OUTSIDE RECORDS SUMMARY | 2025-08-14 11:32 | XMS_ITS | Clinical Summary ---
Author Organization [facility] Address [address] [place] [address] Phone Care Team Providers Care Soccer Ball Assembler Name Role Phone Eugenia Miranda MD Primary [...] up with PCP as she may need usp management of her blood pressure outside of [...] topic Medical Devices Not on file Insurance [facility] ACO [facility]CO [facility] ACO ACO ACO Care Teams Soccer Ball Assembler Relationship Specialty Start Date End Date Eugenia Miranda MD [address] [facility] [place] [address] PCP - General Internal Medicine 03/25/24 Additional Source Comments The information contained in this document represents components of the legal health record. It is not the complete legal health record.[facility]
[2025-08-14 13:48] LABS: MANUAL DIFF FLAG NO
[2025-08-14 13:49] LABS: Hematocrit 37.9 % (37.0-47.0); Hemoglobin 11.7 g/dl (12.0-16.0); Imm Gran Abs Auto 0.01 X10*3/uL (0.00-0.03); Imm Gran Pct Auto 0.2 % (0.0-0.4); Lymphocytes Absolute Auto 1.8 X10*3/uL (1.2-4.9); Mean Corpuscular HGB Conc 30.9 g/dl (31.0-35.0); Mean Corpuscular Hemoglobin 28.4 pg (27.0-33.0); Mean Corpuscular Volume 92.0 fL (80.0-98.0); NRBC Abs Auto 0.000 X10*3/uL (0.0-0.012); NRBC Pct Auto 0.0 /100WBC (0.0-0.2); Platelet Count 258 X10*3/uL (160-400); Red Blood Count 4.12 X10*6/uL (4.20-5.50); White Blood Count 4.2 X10*3/uL (4.8-10.8)
[2025-08-14 14:11] LABS: Alanine Aminotransferase 20 U/L (0-31); Anion Gap 11 (12-20); Aspartate Amino Transferase 22 U/L (5-31); Blood Urea Nitrogen 13 mg/dL (9-16); Calcium 9.3 mg/dL (8.4-10.2); Carbon Dioxide 25 mmol/L (22-29); Chloride 110 mmol/L (96-108); Cholesterol 202 mg/dL (<200); Estimated Glomerular Filt Rate > 60; HDL Cholesterol 63 mg/dL (>40); Iron 103 mcg/dL (30-160); Percent Iron Saturation 32 % (15-50); Potassium 3.6 mmol/L (3.3-5.1); Sodium 142 mmol/L (135-145); Total Iron Binding Capacity 325 mcg/dL (228-428); Triglycerides 63 mg/dL (<150); Unsaturated Iron Binding 222 ug/dL
[2025-08-14 14:27] LABS: Ferritin 20 ng/mL (10-250)
[2025-08-14 14:42] LABS: Folate 12.8 ng/mL (> or = 4.0); Vitamin B12 792 pg/mL (200-900)
== END 2025-08-14 11:30 | disposition home or self-care (01) ==
LOC: HO.HMGCLDS 11:29
PROVIDERS: PCP Internal Medicine; Visit Provider Internal Medicine
DX: I10 Essential (primary) hypertension (principal); E78.5 Hyperlipidemia, unspecified; D50.9 Iron deficiency anemia, unspecified
CPT/HCPCS: 36415; 80048; 80061; 82306; 82607; 82728; 82746; 83540; 84450; 84460; 85025

== ENCOUNTER 2025-08-18 11:11 | Outpatient (AMB) | payer OTHER, SELFPAY ==
--- OUTSIDE RECORDS SUMMARY | 2025-08-18 11:13 | XMS_ITS | Clinical Summary ---
Author Organization [facility] Address [address] [place] [address] Phone Care Team Providers Care Remote Ruby On Rails Developer Name Role Phone Eugenia Miranda MD Primary [...] up with PCP as she may need [facility] management of her blood pressure outside of [...] topic Medical Devices Not on file Insurance [facility] ACO [facility]CO [facility]CO ACO ACO ACO Care Teams Remote Ruby On Rails Developer Relationship Specialty Start Date End Date Eugenia Miranda MD [address] [place] [address] PCP - General Internal Medicine 03/25/24 Additional Source Comments The information contained in this document represents components of the legal health record. It is not the complete legal health record.[facility]
--- NOTE | 2025-08-18 11:34 | MHC.PC.OV ---
Vital Signs 08/18/25 11:37 Height 5 ft 1 in Weight 156 lb BMI 29.5 BP 102/80 Blood Pressure Location Lt brachial Position Sitting Respiration 16 Pulse 71 Pulse Source Pulse Oximeter Temp 98.1 F Temp Source Oral Pulse Oximetry (%) 100 Oxygen Delivery Method Room Air Intake Visit Reasons: PE Intake Note: Pt is here today for her PE: last mammogram, papsmear 12/21/24 [employer] Required: No Is last menstrual period known: Yes Last menstrual period: 08/11/25 Allergies No Known Allergies Allergy (Verified 08/18/25 12:26) Medication List - Last Reconciled 08/18/25 by Eugenia Miranda MD amlodipine 5 mg PO DAILY cholecalciferol (vitamin D3) 125 mcg PO DAILY ferrous sulfate (Feosol) 325 mg PO DAILY folic acid 0.4 mg PO DAILY PNV,calcium [id number] acid 27 mg iron- 1 mg ( Vitamins Plus Low Iron) 1 tab PO DAILY Tobacco use date assessed: 08/18/25 Dental Screening Dental Screen Date: 08/18/25 Did you have a dental visit in the last 12 months?: No Did you have a dental problem in the last 6 months where you did not have access to dental care?: No Was dental information given to patient?: Patient has dentist HPI PE HPI Details 40-year-old lady with history of hypertension, history of dyslipidemia, anemia with heavy menstrual bleeding, here today for physical exam. She is up-to-date with her cervical cancer screening, had Pap smear done this year with negative findings. She also had insertion of Mirena IUD 08/09/2025 to help control her heavy menstrual bleeding. Up-to-date with her breast cancer screening, mammogram or done earlier this year with negative findings. Blood pressure stable and controlled on present treatment with amlodipine 5 mg taken daily. Latest fasting labs showed presence of mild leukopenia and anemia, with normal iron levels, normal electrolytes renal function fasting glucose lipid panel and vitamin-D level. She has been feeling well, with no complaints at present time [facility]LY [facility], [facility] Medical History (Updated 08/18/25 @ 12:34 by Eugenia Miranda MD) Anemia, iron deficiency Environmental and seasonal allergies Dyslipidemia Social isolation in parenthood Essential hypertension Generalized anxiety disorder Numbness and tingling History of COVID-19 Surgical History No pertinent past surgical history Family History Other No pertinent family history in first degree relatives Social History Housing: Condominium Patient Tobacco Use Status: Never used Tobacco e-Cigarette/Vaping Use: Never Used service: No Current occupational status: student Cognitive needs: No Hearing needs: No Vision needs: No Female Reproductive History Menstrual Age of Menarche: 15 Date of last menstrual period: 08/11/25 Questionnaire PHQ-9 Over the last 2 weeks, how often have you been bothered by any of the following problems? 1. Little interest or pleasure in doing things: not at all 2. Feeling down, depressed, or hopeless: not at all 3. Trouble falling or staying asleep, or sleeping too much: several days 4. Feeling tired or having little energy: not at all 5. Poor appetite or overeating: not at all 6. Feeling bad about yourself - or that you are a failure or have let yourself or your family down: several days 7. Trouble concentrating on things, such as reading the newspaper or watching television: not at all 8. Moving or speaking so slowly that other people could have noticed. Or the opposite - being so fidgety or restless that you have been moving around a lot more than usual: not at all 9. Thoughts that you would be better off or of hurting yourself in some way: not at all Total score: 2 Depression Screening Interpretation: Negative Depression Screening Done: Yes Source: Developed by Drs. Nathan Sanchez, Marlin Garcia, Horacio Gallegos and colleagues, with an educational amaya from [employer]. Thrive Questionnaire Date Thrive assessed: 12/31/24 What is your living situation today?: I have a steady place to live Within the past 12 months, did the food you bought not last and you didn't have the money to get more?: I choose not to answer this question Within the past 12 months, did you worry whether your food would run out before you got money to buy more?: Never true Do you have trouble paying for medicines?: No Do you have trouble getting transportation to medical appointments?: No Do you have trouble paying your heating and electricity bill?: I choose not to answer this question Do you have trouble taking care of your child, family member or friend?: No Do you have trouble with day-to-day activities such as bathing, preparing meals, shopping, managing finances, etc.?: No Are you currently unemployed and looking for a job?: No Are you interested in more education?: No Currently or been in a relationship where the following occur: I choose not to answer THRIVE Score: 0 AUDIT C Alcohol Use Questionnaire (AUDIT-C) 1. How often do you have a drink containing alcohol?: Never Total Score: 0 ADITYA-7 AMB Questionnaire ADITYA-7 Date ADITYA - 7 assessed: 12/31/24 Feeling nervous, anxious, or on edge: 0 = Not at all Not being able to stop or control worryin = Not at all Worrying too much about different things: 0 = Not at all Trouble relaxin = Not at all Being so restless that it is hard to sit still: 0 = Not at all Becoming easily annoyed or irritable: 0 = Not at all Feeling afraid as if something awful might happen: 0 = Not at all Total ADITYA-7 score (0-4 normal; 5-9 mild; 10-14 moderate; 15-21 severe): 0 Source: Developed by Drs. Nathan Sanchez, Marlin Garcia, Horacio Gallegos and colleagues, with an educational amaya from [employer]. Review of Systems Const Denies body aches, Denies fatigue, Denies fever(s), Denies headache(s) and Denies weakness Eyes Details: Overdue for eye exam, complains of difficulty reading fine print ENT Denies dizziness, Denies headache(s) and Denies nasal congestion Card Denies chest pain, Denies lightheadedness and Denies palpitations Resp Reports no additional complaints GI Denies abdominal pain, Denies change in bowel habits and Denies heartburn Denies hematuria, Denies urinary frequency, Denies dysuria and Denies urinary urgency Musc Reports no additional complaints Skin/Breast Denies breast pain, Denies breast mass, Denies lesions and Denies rash Neuro Denies dizziness, Denies headache(s) and Denies weakness Psych Reports no additional complaints Endo Denies fatigue, Denies polydipsia, Denies polyuria and Denies palpitations Kamran/Lymph Denies easy bruising Aller/Immun Reports no additional complaints Physical exam (Primary Care) Vital Signs: Last Vital Signs Temp 98.1 F 08/18/25 11:37 Pulse 71 08/18/25 11:37 Resp 16 08/18/25 11:37 BP 102/80 08/18/25 11:37 Pulse Ox 100 08/18/25 11:37 Oxygen Delivery Method Room Air 08/18/25 11:37 BMI result Body Mass Index 29.5 Tobacco/Smoking Status: Tobacco use Status Tobacco use date assessed 08/18/25 08/18/25 11:40 Patient Tobacco Use Status Never used Tobacco 08/18/25 11:40 e-Cigarette/Vaping Use Never Used 08/18/25 11:40 PHQ-9: PHQ-9 Score PHQ-9: Total score 2 08/18/25 11:40 Depression Screening Interpretation: Negative Thrive Assessment: Date of Thrive Assessment Date Thrive assessed 12/31/24 08/18/25 11:40 Currently or been in a relationship where the following occur: I choose not to answer Const Other: Alert oriented x3, no acute distress noted ambulatory normal gait [facility] General nose exam: Normal external nose present Face and sinus: Yes face symmetric Mouth: Normal oral and palatal mucosa present, oropharynx normal and moist mucous membranes Eyes General: appearance normal, both eyes and all related structures Neck Neck: Yes full ROM, Yes no lymphadenopathy and Yes supple Resp Effort & Inspection: normal respiratory effort and able to speak in complete sentences Auscultation: clear to auscultation bilaterally Cardio Rate: regular rate Rhythm: regular rhythm Heart sounds: S1 normal heart sound present and S2 normal heart sound present GI Palpation (GI): Soft to palpation, nontender and no guarding Auscultation: normal bowel sounds Other: sees [facility] with her cervical cancer screening General: Yes no CVA tenderness Back/Spine/Pelvis Back: no CVA tenderness and No back tenderness Skin General skin exam: no rashes or lesions noted Neuro General: gait normal, tone normal, moves all extremities, Normal light touch and pain sensation, no focal motor deficits and CN's II-XI intact bilaterally Cognition (Neuro): normal cognition Gait exam (Neuro): Normal gait present Extrem General: Yes full ROM, Yes no joint enlargement, Yes no pedal edema, Yes no calf tenderness and Yes normal gait Psych Appearance: grossly normal and well kempt Mental Status: mental status grossly normal Speech and movement: Normal speech and movement present Affect: normal affect Results Reviewed Results Reviewed: Name: Delta Lawrence Age/Sex: 40/F : 1985 Unit#: [id number] Attend Dr: Eugenia Miranda MD Re08/14/25 Status: DEP REF Location: [facility] Disch: SPEC : [id number] STEPH: 08/14/25 STATUS: COMP REQ : [id number] RECD: 08/14/[address]: Eugenia Miranda MD COMP: 08/14/25 ENTERED: 08/14/[address] [facility] [address]: ORDERED: CBC Auto Diff Test Result Flag Reference WBC 4.2 L 4.8-10.8 X10*3/uL RBC 4.12 L 4.20-5.50 X10*6/uL HGB 11.7 L 12.0-16.0 g/dl HCT 37.9 37.0-47.0 % MCV 92.0 80.0-98.0 fL MCH 28.4 27.0-33.0 pg MCHC 30.9 L 31.0-35.0 g/dl RDW 12.8 11.0-16.0 % PLT 258 # 160-400 X10*3/uL MPV 10.4 9.4-12.3 fL Neut Pct Auto 46.4 45-73 % ImGran Pct Auto 0.2 0.0-0.4 % Lymp Pct Auto 43.6 H 20-40 % [place] Pct Auto 6.7 2-11 % Eos Pct Auto 2.6 0-4 % Baso Pct Auto 0.5 0-2 % NRBC Pct Auto 0.0 0.0-0.2 /100WBC ANC Neut Abs # 2.0 2.0-8.3 x10*3/uL ImGran Abs Auto 0.01 0.00-0.03 X10*3/uL Lymph Abs Auto 1.8 1.2-4.9 X10*3/uL [place] Abs Auto 0.3 0.1-1.2 X10*3/uL Eos Abs Auto 0.1 0.0-0.4 X10*3/uL Baso Abs Auto 0.0 0.0-0.2 X10*3/uL NRBC Abs Auto 0.000 0.0-0.012 X10*3/uL Name: Delta Lawrence Age/Sex: 40/F : 1985 Unit#: [id number] Attend Dr: Eugenia Miranda MD Re08/14/25 Status: DEP [facility] Disch: SPEC : [id number] STEPH: 08/14/25 STATUS: COMP REQ : [id number] RECD: 08/14/[address]: Eugenia Miranda MD COMP: 08/14/25 ENTERED: 08/14/[address] [facility] [address]: ORDERED: Met Prof Fast, IRON PROF, Ferritin, AST, ALT, Lipid Panel, Vitamin D 25- Test Result Flag Reference Sodium 142 135-145 mmol/L Potassium 3.6 3.3-5.1 mmol/L CL 110 H 96-108 mmol/L CO2 25 22-29 mmol/L Gap 11 L 12-20 BUN 13 9-16 mg/dL Creat 0.69 0.5-1.4 mg/dL eGFR > 60 Chronic Kidney Disease: Estimated GFR < 60 mL/min/1.73m2 Severe Kidney Disease: Estimated GFR < 15 mL/min/1.73m2 FBS 90 60-99 mg/dL CA 9.3 # 8.4-10.2 mg/dL Iron 103 30-160 mcg/dL TIBC 325 228-428 mcg/dL Saturation 32 15-50 % UIBC 222 ug/dL Ferritin 20 10-250 ng/mL AST (GOT) 22 5-31 U/L ALT (GPT) 20 0-31 U/L Triglyceride 63 <150 mg/dL Desirable Triglyceride: less than 150 mg/dL Borderline High Triglyceride 150-199 mg/dL High Triglyceride: 200-499 mg/dL Very High Triglyceride: greater than or equal to 5OO mg/dL Cholesterol 202 H <200 mg/dL Desirable Cholesterol: less than 200 mg/dL Borderline High Cholesterol: 200-239 mg/dL High Cholesterol: greater than 239 mg/dL LDL Calculated 127 H <100 mg/dL Desirable LDL: less than 100 mg/dL Near Optimal/Above Optimal LDL: 110-129 mg/dL Borderline High LDL: 130-159 mg/dL High LDL: 160-189 mg/dL Very High LDL: greater than or equal to 190 mg/dL HDL 63 >40 mg/dL Desirable HDL: greater than 40 mg/dL Note: This HDL assay may give artificially low results in patients with liver disease. Vitamin D 25-OH 45.0 >30 ng/mL Health Based Reference Values* < 20 ng/mL Deficient 20-30 ng/mL Insufficient > 30 ng/mL Sufficient Coding Level of Care Code Est Pt Prev Care 40-64y(03404) Diagnoses Annual visit for general adult medical examination with abnormal findings Z00.01 Essential hypertension I10 Dyslipidemia E78.5 Iron deficiency anemia, unspecified iron deficiency anemia type D50.9 Iron deficiency anemia type: unspecified iron deficiency Assessment & Plan Assessment & Plan (1) Annual visit for general adult medical examination with abnormal findings: Code(s): Z00.01 - Encounter for general adult medical examination with abnormal findings Plan: Results of recent labs reviewed with patient. Recommended dental visit every 6 months and regular eye exams, at least every 2 years. Take adequate calcium in diet and vitamin-D 3 at 2000 IU per cap once a day, in addition to weight-bearing exercises to help maintain good muscle tone and weight control. Instructed to do self-breast exam, and continue to get yearly mammogram, currently up-to-date. Up-to-date with her cervical cancer screening, goes to [facility]. Up-to-date with her Tdap but does not want to get a COVID booster or the flu vaccine (2) Essential hypertension: Code(s): I10 - Essential (primary) hypertension Category: Medical Plan: Blood pressure at goal of less than 130/80. Continue with amlodipine 5 mg daily. Reinforced importance of following a low sodium diet, getting regular exercise, and lowering stress levels. (3) Dyslipidemia: Code(s): E78.5 - Hyperlipidemia, unspecified Category: Medical Plan: Reviewed recent fasting lipid profile with patient with improving LDL cholesterol levels . Continue low-cholesterol diet and regular exercise, at least 30 minutes 3 to 4 times a week. Advised patient to make healthy food choices, eat more fruits, vegetables, whole grains, wild caught fish and low-fat dairy. Limit amount of meat and fried or fatty food products, as well as processed foods and fast foods. (4) Anemia, iron deficiency: Comment: 07/21/2025 discussed options to deal with heavy menses planning on Mirena IU S insertion with next menses... Code(s): D50.9 - Iron deficiency anemia, unspecified Category: Medical Qualifiers: Iron deficiency anemia type: unspecified iron deficiency Qualified Code(s): D50.9 - Iron deficiency anemia, unspecified Plan: Latest CBC showed mild improvement in her hemoglobin hematocrit, recently had Mirena IUD inserted to help control menstrual bleed. Continue taking iron supplements until finished. Will repeat another CBC on next visit
[2025-08-18 11:37] VITALS: BP 102/80; PULSE 71; RESP 16; TEMP 36.7; O2SAT 100; BMI 29.5
== END 2025-08-18 12:24 | disposition home or self-care (01) ==
PROVIDERS: PCP Internal Medicine; Visit Provider Internal Medicine
DX: Z00.01 Encounter for general adult medical examination with abnormal findings (principal); I10 Essential (primary) hypertension; E78.5 Hyperlipidemia, unspecified; D50.9 Iron deficiency anemia, unspecified

== ENCOUNTER → 2025-08-18 11:11 | Outpatient (BNVA) | payer OTHER, SELFPAY | PROVIDERS: PCP Internal Medicine; Visit Provider Internal Medicine | DX: Z00.01 Encounter for general adult medical examination with abnormal findings (principal); I10 Essential (primary) hypertension; E78.5 Hyperlipidemia, unspecified; D50.9 Iron deficiency anemia, unspecified | CPT/HCPCS: 99396 ==